=== PATIENT | male | born 1935 | race Caucasian/White ===

== ENCOUNTER → 2016-11-02 14:00 | Outpatient (CLI) | payer MEDICARE, OTHER ==
[2012-08-20 09:27] VITALS: BMI 25.0
[~2016-11-02 14:00] MED LIST: BAYER CHEWABLE81 MG PO; BENICAR5 MG PO; BREO ELLIPTA 11 EACH INH; HYDROCODON-ACE1 EAC7 PO; LEXAPRO20 MG PO; PROSCAR5 MG PO; TOPROL XL25 MG PO
[2016-11-27 10:36] VITALS: BMI 26.4
== END | disposition home or self-care (01) ==
LOC: D.CT 14:00
DX: R06.00 Dyspnea, unspecified (principal)

== ENCOUNTER 2016-11-27 08:56 | Day surgery (SDC) | payer MEDICARE, OTHER ==
[~2016-11-27] VITALS: Ht 185.4 cm; Wt 90.9 kg
[2016-11-27 09:38] LABS: HEMATOCRIT 47.1 % (42.0-54.0); HEMOGLOBIN 16.3 g/dL (13.5-17.5); MCH 33.7 pg (26.0-34.0); MCHC 34.6 g/dL (31.0-37.0); MCV 97.3 fL (80.0-100.0); MEAN PLATELET VOLUME 8.7 fL (7.4-10.4); NEUTROPHILS 70.2 % (40-80); PLATELET COUNT 246 10x3/uL (130-400); RBC 4.84 10x6/uL (4.20-6.10); RDW 13.1 % (11.5-14.5); WBC 6.6 10x3/uL (4.8-10.8)
[2016-11-27 09:44] LABS: APTT 26.7 SECONDS (22.8-39.4); INR 0.93 (0.85-1.17); PROTIME 12.3 SECONDS (11.6-15.0)
[2016-11-27] MEDS ORDERED: PROSCAR5 MG PO (10:07)
[2016-11-27] MEDS ORDERED: TOPROL XL25 MG PO (10:08)
[2016-11-27] MEDS ORDERED: BENICAR5 MG PO (10:08)
[2016-11-27] MEDS ORDERED: BAYER CHEWABLE81 MG PO (10:09)
[2016-11-27] MEDS ORDERED: LEXAPRO20 MG PO (10:09)
[2016-11-27] MEDS ORDERED: HYDROCODON-ACE1 EAC7 PO (10:10)
[2016-11-27 10:36] VITALS: BP 159/79; Ht 185.4 cm; Wt 90.9 kg
[2016-11-27] MEDS ORDERED: BREO ELLIPTA 11 EACH INH (10:40)
--- NOTE | 2016-11-27 12:37 | NUR ---
1225-RECD TO ROOM POST BRONCHOSCOPY. DROWSY, AROUSES EASILY. O2 ON AT 6L, DECREASED TO 2L PER NC--O2 SAT IS 99%. IV PATENT. RESP WITH EASE, CONTINUES TO COUGH AT INTERVALS.
--- NOTE | 2016-11-27 13:40 | NUR ---
PATIENT TOLERATING CLEAR LIQUIDS WITHOUT NAUSEA OR VOMITING, RIGHT AC PIV DC'D WITH TIP INTACT. PATIENT STANDS UP AND WALKS AROUND ROOM WITHOUT DIZZINESS, WALKS WITH CANE, STATES SOME UNSTEADINESS IS TYPICAL FOR HIM DUE TO HX OF STROKE. PATIENT DRESSING IN PERSONAL CLOTHING
--- NOTE | 2016-11-27 14:05 | NUR ---
DC INSTRUCTIONS REVIEWED WITH PATIENT, DISCHARGED HOME VIA WHEELCHAIR TO PRIVATE VEHICLE WITH PAID CAREGIVER
[2016-11-28 09:19] LABS: IMMUNOGLOBULIN E 41 IU/mL (0-100)
[2016-11-28 11:16] LABS: ANA REFLEX - DIRECT Negative (Negative)
[2016-11-29 16:15] LABS: ACID FAST SMEAR Negative (()); AFB SPECIMEN PROCESSING Concentration (())
== END 2016-11-27 14:05 | disposition home or self-care (01) ==
LOC: D.OPS 08:56
PROVIDERS: Internal Medicine Pulmonary Disease
DX: R93.8 Abnormal findings on diagnostic imaging of other specified body structures (principal); J84.112 Idiopathic pulmonary fibrosis; R05 Cough; R06.00 Dyspnea, unspecified; J30.9 Allergic rhinitis, unspecified; K21.9 Gastro-esophageal reflux disease without esophagitis; T17.928A Food in respiratory tract, part unspecified causing other injury, initial encounter; G47.19 Other hypersomnia; J45.991 Cough variant asthma; I10 Essential (primary) hypertension; I49.3 Ventricular premature depolarization; N40.0 Benign prostatic hyperplasia without lower urinary tract symptoms; I63.9 Cerebral infarction, unspecified; R21 Rash and other nonspecific skin eruption

== ENCOUNTER → 2016-12-05 10:20 | Outpatient (CLI) | payer MEDICARE, OTHER ==
[2016-11-27 10:36] VITALS: BMI 26.4
== END | disposition home or self-care (01) ==
LOC: D.RT 10:20 → D.ECHO 12-06 09:00 → D.RT 12-11 08:00
DX: J84.10 Pulmonary fibrosis, unspecified (principal)

== ENCOUNTER → 2017-01-21 19:45 | Outpatient (CLI) | payer MEDICARE, OTHER ==
[2016-11-27 10:36] VITALS: BMI 26.4
== END | disposition home or self-care (01) ==
LOC: D.SLEEP 19:45
DX: G47.33 Obstructive sleep apnea (adult) (pediatric) (principal)

== ENCOUNTER → 2017-01-28 19:30 | Outpatient (CLI) | payer MEDICARE, OTHER ==
[2016-11-27 10:36] VITALS: BMI 26.4
== END | disposition home or self-care (01) ==
LOC: D.SLEEP 19:30
DX: G47.33 Obstructive sleep apnea (adult) (pediatric) (principal)

== ENCOUNTER → 2017-02-08 19:07 | Outpatient (CLI) | payer MEDICARE, OTHER ==
[2016-11-27 10:36] VITALS: BMI 26.4
== END | disposition home or self-care (01) ==
LOC: D.SLEEP 19:07
DX: G47.30 Sleep apnea, unspecified (principal)

== ENCOUNTER 2017-02-21 13:00 | Observation (INO) | payer MEDICARE, OTHER ==
[~2017-02-21] VITALS: Ht 185.4 cm; Wt 96.2 kg
[2017-02-21 13:16] LABS: BASOPHILS 0.4 % (0-2); EOSINOPHILS 2.6 % (0-7); HEMATOCRIT 47.4 % (42.0-54.0); IMMATURE GRANULOCYTES 0.5 % (0-5); LYMPHOCYTES 13.3 % (15-50); MCH 33.3 pg (26.0-34.0); MCHC 33.8 g/dL (31.0-37.0); MCV 98.5 fL (80.0-100.0); MEAN PLATELET VOLUME 9.7 fL (7.4-10.4); MONOCYTES 10.9 % (2-11); NEUTROPHILS 72.3 % (40-80); PLATELET COUNT 275 10x3/uL (130-400); RBC 4.81 10x6/uL (4.20-6.10); RDW 13.1 % (11.5-14.5); WBC 8.4 10x3/uL (4.8-10.8)
[2017-02-21 13:20] LABS: APTT 26.8 SECONDS (22.8-39.4); INR 0.96 (0.85-1.17); PROTIME 12.6 SECONDS (11.6-15.0)
[2017-02-21 13:22] LABS: ALBUMIN 3.3 g/dL (3.4-5.0); ANION GAP 11.3 mmol/L (8-16); BILIRUBIN - TOTAL 0.73 mg/dL (0.2-1.3); CALCIUM 9.1 mg/dL (8.5-10.1); CARBON DIOXIDE 27.6 mmol/L (21.0-32.0); CREATININE - SERUM 1.7 mg/dL (0.6-1.3); POTASSIUM - SERUM 4.9 mmol/L (3.5-5.1); PROTEIN - SERUM 7.1 g/dL (6.4-8.2)
[2017-02-21 13:49] LABS: CKMB 3.8 U/L (0.0-3.6); CREATINE KINASE 184 UL (21-232); TROPONIN-I 0.021 ng/mL (0.000-0.060)
[2017-02-21] MEDS ORDERED: MIRAPEX0.25 MG PO (17:14)
[2017-02-21] MEDS ORDERED: HYDROXYZINE HCL10 MG PO (17:15)
[2017-02-21] MEDS ORDERED: DIPHENHIST25 MG PO (17:18)
[2017-02-21 17:23] VITALS: BP 164/74; Ht 185.4 cm; Wt 96.2 kg
--- NOTE | 2017-02-21 19:36 | NUR ---
NORCO 1 TAB GIVEN FOR C/O HEADACHE, RATES PAIN AT A 5 ON PAIN SCALE.
[2017-02-21] MEDS ORDERED: XOPENEX 0.0.63 MG/3 UPD (19:38)
[2017-02-21 20:00] VITALS: BP 143/54
--- NOTE | 2017-02-21 20:23 | NUR ---
SON AT NURSES DESK, STATED THAT HIS FATHER WAS "SPEAKING GIBBERISH" ENTERED ROOM, VITALS STABLE, PT ALERT ORIENTED TO SELF, KNEW THAT HE WAS IN THE HOSPITAL BUT THOUGHT THAT HE WAS IN A DIFFERENT STATE. PT C/O HEADACHE, ASKING FOR HYDROCODONE, REMINDED PT THAT I GAVE IT ABOUT AN HOUR AGO BUT I CAN BRING HIM IN SOME TYLENOL WITH [facility] NIGHT TIME MEDS AND PT AGREED THAT, THAT WILL BE OK.
--- NOTE | 2017-02-21 20:30 | NUR ---
SPOKE WITH DR ARAIZA, INFORMED OF CONSULT, NO NEW ORDERS AT THIS TIME.
--- NOTE | 2017-02-21 21:13 | NUR ---
HS MEDS GIVEN WITH FRESH ICE WATER. TYLENOL 650 MG GIVEN FOR C/O HEADACHE, STATED THAT THE NORCO GIVEN EARLIER HAS HELPED BUT STILL RATES PAIN AT A 5 ON PAIN SCALE. SON AT BED SIDE, BED LOW, CL IN REACH.
[2017-02-22] VITALS: BP 158/73
--- NOTE | 2017-02-22 00:22 | NUR ---
DAVID 1 TAB GIVEN FOR C/O HEADACHE, PT STATED THAT HIS HEADACHE FROM EARILER WENT AWAY BUT HAS COME BACK, RATES PAIN AT A 6 ON PAIN SCALE.
--- NOTE | 2017-02-22 01:38 | NUR ---
RESTING WITH EYES CLOSED, RESPERATIONS EVEN, NO S/S DISTRESS NOTED.
[2017-02-22 04:00] VITALS: BP 146/75
[2017-02-22 05:42] LABS: BASOPHILS 0.4 % (0-2); EOSINOPHILS 3.5 % (0-7); HEMATOCRIT 46.4 % (42.0-54.0); HEMOGLOBIN 15.3 g/dL (13.5-17.5); IMMATURE GRANULOCYTES 0.3 % (0-5); LYMPHOCYTES 20.4 % (15-50); MCH 32.5 pg (26.0-34.0); MCV 98.5 fL (80.0-100.0); MEAN PLATELET VOLUME 9.6 fL (7.4-10.4); MONOCYTES 10.5 % (2-11); NEUTROPHILS 64.9 % (40-80); PLATELET COUNT 268 10x3/uL (130-400); RBC 4.71 10x6/uL (4.20-6.10); RDW 12.9 % (11.5-14.5); WBC 7.7 10x3/uL (4.8-10.8)
[2017-02-22 06:13] LABS: CALC OSMOLALITY 277 mosm/kg (275-300); CALCIUM 8.5 mg/dL (8.5-10.1); CARBON DIOXIDE 26.2 mmol/L (21.0-32.0); CHLORIDE - SERUM 103 mmol/L (98-107); CKMB 5.6 U/L (0.0-3.6); CREATININE - SERUM 1.6 mg/dL (0.6-1.3); GLUCOSE 97 mg/dL (74-106); SODIUM 137 mmol/L (136-145); TROPONIN-I 0.017 ng/mL (0.000-0.060); UREA NITROGEN 25 mg/dL (7-18); eGFR NON AFRICAN AMERICAN 44 mL/min (90-120)
[2017-02-22 06:16] LABS: CREATINE KINASE 276 UL (21-232)
--- NOTE | 2017-02-22 07:37 | NUR ---
ASSESSMENT COMPLETED. DR ARAIZA AT BEDSIDE. IV TO RIGHT ARM WITH D51/2 AT 50. DENIES ANY NEEDS. FAMILY AT BEDSIDE. PT IS ALERT AND ORIENTED AT PRESENT TIME. TELEMERTY SHOWS SR
[2017-02-22 08:18] VITALS: BP 156/76
--- NOTE | 2017-02-22 09:20 | NUR ---
WATCHING TV IN ROOM WITH NEEDS DENIED CALL LIGHT IN REACH WITH DOOR OPEN FOR VISUAL OBSERVATION OF NEEDS WILL MONITOR
[2017-02-22 11:44] VITALS: BP 144/62
[2017-02-22] MEDS ORDERED: ASPIRIN325 MG PO (12:26)
--- NOTE | 2017-02-22 12:49 | NUR ---
LYING QUIETLY WITH SON AT BEDSIDE. AWAITING DR Delgado FOR DISCHARGE. WILL MONITOR
--- NOTE | 2017-02-22 13:51 | NUR ---
PT DISCHARGED. IV DC D WITH TIP INTACT. INSTRUCTIONS GIVEN TO PT AND SON. TO PRIVATE CAR PER WHEELCHAIR.
== END 2017-02-22 13:55 | disposition home or self-care (01) ==
LOC: D.ER 13:00 → D.M2 15:40 → OBSVTIME 15:48 → D.M2 02-22 13:55
PROVIDERS: Emergency Medicine; ADMIT Family Medicine
DX: G45.9 Transient cerebral ischemic attack, unspecified (principal); M50.00 Cervical disc disorder with myelopathy, unspecified cervical region; E78.5 Hyperlipidemia, unspecified; I10 Essential (primary) hypertension; Z86.73 Personal history of transient ischemic attack (TIA), and cerebral infarction without residual deficits; R51 Headache; K21.9 Gastro-esophageal reflux disease without esophagitis

== ENCOUNTER 2017-03-05 12:02 | Inpatient (IN) | payer MEDICARE, OTHER ==
[~2017-03-05 12:02] MED LIST changes: +ASPIRIN325 MG PO; +DIPHENHIST25 MG PO; +HYDROXYZINE HCL10 MG PO; +MIRAPEX0.25 MG PO; +XOPENEX 0.0.63 MG/3 UPD
[2017-03-05 13:15] LABS: BASOPHILS 0.1 % (0-2); EOSINOPHILS 1.8 % (0-7); HEMATOCRIT 45.5 % (42.0-54.0); HEMOGLOBIN 15.5 g/dL (13.5-17.5); IMMATURE GRANULOCYTES 0.9 % (0-5); LYMPHOCYTES 10.1 % (15-50); MCH 33.1 pg (26.0-34.0); MCHC 34.1 g/dL (31.0-37.0); MCV 97.2 fL (80.0-100.0); MEAN PLATELET VOLUME 9.8 fL (7.4-10.4); MONOCYTES 10.7 % (2-11); NEUTROPHILS 76.4 % (40-80); RBC 4.68 10x6/uL (4.20-6.10); RDW 13.1 % (11.5-14.5); WBC 11.3 10x3/uL (4.8-10.8)
[2017-03-05 13:22] LABS: PLATELET COUNT 214 10x3/uL (130-400)
[2017-03-05 13:30] LABS: INR 0.97 (0.85-1.17); PROTIME 12.8 SECONDS (11.6-15.0)
[2017-03-05 13:36] LABS: ALBUMIN 2.9 g/dL (3.4-5.0); ALKALINE PHOSPHATASE 112 U/L (46-116); ALT (SGPT) 39 U/L (10-68); BILIRUBIN - TOTAL 1.01 mg/dL (0.2-1.3); CALC OSMOLALITY 279 mosm/kg (275-300); CARBON DIOXIDE 22.7 mmol/L (21.0-32.0); CHLORIDE - SERUM 105 mmol/L (98-107); CREATININE - SERUM 1.6 mg/dL (0.6-1.3); GLUCOSE 108 mg/dL (74-106); POTASSIUM - SERUM 4.5 mmol/L (3.5-5.1); PROTEIN - SERUM 7.5 g/dL (6.4-8.2); SODIUM 138 mmol/L (136-145); UREA NITROGEN 20 mg/dL (7-18); eGFR NON AFRICAN AMERICAN 44 mL/min (90-120)
[2017-03-05 13:45] LABS: CREATINE KINASE 120 UL (21-232); PRO BNP 730 pg/mL (0-450)
[2017-03-05 13:48] LABS: TROPONIN-I < 0.017 ng/mL (0.000-0.060)
[2017-03-05 18:55] LABS: APPEARANCE HAZY (CLEAR); BILIRUBIN NEGATIVE (NEGATIVE); COLOR DK YELLOW (YELLOW); GLUCOSE NEGATIVE (NEGATIVE); KETONE NEGATIVE (NEGATIVE); NITRITE NEGATIVE (NEGATIVE); PROTEIN TRACE mg/dL (NEGATIVE); SPECIFIC GRAVITY 1.025 (1.005-1.020); UROBILINOGEN NORMAL (NORMAL)
[2017-03-05 18:56] LABS: BACTERIA MODERATE /hpf (NONE SEEN); RED CELLS - URINE >50 /hpf (0-5); WHITE CELLS - URINE 25-50 /hpf (0-5)
--- NOTE | 2017-03-05 21:30 | NUR ---
RECEIVED PT FROM ER, PT ALERT AND ORIENTED.
[2017-03-06] VITALS: BP 121/60
--- NOTE | 2017-03-06 02:29 | NUR ---
REST QUIETLY IN BED. BED LOW, CALL LIGHT WITHIN REACH.
[2017-03-06 04:00] VITALS: BP 155/69
[2017-03-06 04:27] VITALS: BMI 26.4
[2017-03-06] MEDS ORDERED: VITAMIN B-121000 MCG PO (05:08)
[2017-03-06] MEDS ORDERED: MIRAPEX0.25 MG PO (05:09)
[2017-03-06] MEDS ORDERED: TYLENOL PM1 TAB PO (05:10)
[2017-03-06] MEDS ORDERED: HEADACHE MEDICINE (05:16)
[2017-03-06 06:14] LABS: BASOPHILS 0.3 % (0-2); HEMATOCRIT 40.7 % (42.0-54.0); HEMOGLOBIN 13.8 g/dL (13.5-17.5); IMMATURE GRANULOCYTES 0.5 % (0-5); MCH 33.3 pg (26.0-34.0); MCHC 33.9 g/dL (31.0-37.0); MCV 98.3 fL (80.0-100.0); MEAN PLATELET VOLUME 9.9 fL (7.4-10.4); MONOCYTES 10.4 % (2-11); NEUTROPHILS 73.8 % (40-80); PLATELET COUNT 209 10x3/uL (130-400); RBC 4.14 10x6/uL (4.20-6.10); WBC 10.9 10x3/uL (4.8-10.8)
[2017-03-06 06:33] LABS: ANION GAP 15.3 mmol/L (8-16); CALCIUM 8.5 mg/dL (8.5-10.1); CARBON DIOXIDE 22.4 mmol/L (21.0-32.0); CREATININE - SERUM 1.4 mg/dL (0.6-1.3)
[2017-03-06 06:35] LABS: POTASSIUM - SERUM 3.7 mmol/L (3.5-5.1)
--- NOTE | 2017-03-06 07:35 | NUR ---
SITTING IN BED, AT BEDSIDE, DAUGHTER ON PHONE, REQUEST CPAP BUT WE DON'T HAVE ANY AVAILABLE AT THE HOSPITAL, AWAITING FOR HOME MACHINE TO BE DELIVERED, BED LOWEST POSITION, CALL LIGHT IN REACH, WILL CONTINUE TO MONITOR
[2017-03-06 08:07] VITALS: BP 138/69
[2017-03-06 10:55] VITALS: BMI 26.3
[2017-03-06 12:17] VITALS: BP 140/71
--- NOTE | 2017-03-06 13:22 | NUR ---
RESPIRATIONS EVEN AND NON LABORED. AT BEDSIDE WITH CALL LIGHT IN REACH. DENIES NEEDS AT PRESENT TIME. WILL CONTINUE WITH PLAN OF CARE.
--- NOTE | 2017-03-06 15:19 | NUR ---
Patient Name: PHILIP PATEL Admission Status: ER Accout number: [id number] Admission Date: 03-05-2017 : 1935 Admission Diagnosis:PNEUMONIA, UNSPECIFIED ORGANISM Attending: CHETAN Current LOS: 1 Anticipated DC Date: 03-08-2017 Planned Disposition: Home Primary Insurance: MEDICARE A & B Discharge Planning Comments: CM MET WITH PATIENT AND CAREGIVER (KATHRINE) REGARDING D/C NEEDS AND PLANS. PATIENT STATED HE HAS NO STEPS OR STAIRS AT HIS HOME AND ONE OF HIS CAREGIVERS WILL DRIVE HIM HOME AT DISCHARGE. PATIENT STATED HE HAS A PRIVATE CAREGIVER (KATHRINE) AND OTHERS THROUGH [facility]. PATIENT HAS A WALKER, BUILT IN SEAT IN SHOWER, AND NEBULIZER AT HOME. PATIENT HAS A C-PAP ON ORDER THROUGH DR. COVARRUBIAS OFFICE AND CM CHECKED WHEN C-PAP WAS ORDERED AND IT WAS February. PATIENTS PCP IS DR. HIGGINS, AND PHARMACY IS [facility] IN THE [facility]. CM WILL CONTINUE TO FOLLOW PATIENT WITH D/C NEEDS AND PLANS. PATIENT REFUSED HOME HEALTH. CM WILL CONTINUT TO FOLLOW PATIENT WITH D/C NEEDS AND PLANS. PCP DR. ENGLISH WATTERS AT [facility] [phone] KATHRINE (PRIVATE AQUATIC LIFE LABORER) [phone] [facility] Factory Process Workers: Regijoyce Aranda Is the patient Alert and Oriented? Yes 0 * How many steps to enter\exit or inside your home? 0 0 * PCP DR. HIGGINS 0 * Pharmacy [facility] 0 * Preadmission Environment Home with Family 0 * ADLs Partial Dependent 0 * Partial ADLs (Assistance needed) Bathing Dressing Medication Management 0 * Equipment Nebulizer Walker 0 * Other Equipment BUILT IN SHOWER CHAIR 0 * List name and contact numbers for known caregivers / representatives who currently or will assist patient after discharge: KATHRINE (PRIVATE AQUATIC LIFE LABORER) [phone] [facility] (OTHER CARE GIVERS) 0 * Community resources currently utilized Private Duty Care 0 * Please name any agencies selected above. [facility] 0 * Additional services required to return to the preadmission environment? Yes 0 * Can the patient safely return to the preadmission environment? Yes 0 * Has this patient been hospitalized within the prior 30 days at any hospital? No 0 Grand Total: 0
[2017-03-06 16:14] VITALS: BP 125/59
--- NOTE | 2017-03-06 19:45 | NUR ---
PATIENT RESTING IN BED WITH CAREGIVER AT BEDSIDE. PATIENT IS CONCERNED THAT WE DO NOT HAVE ALL OF HIS CURRENT MEDICATIONS LISTED. I WENT THROUGH ALL OF THE PATIENT'S MEDICATIONS THAT HE IS CURRENTLY RECEIVING. PATIENT STATED THAT HE WILL HAVE HIS LIST OF MEDICATIONS BROUGHT IN TOMORROW TO CONFIRM THAT HE IS RECEIVING ALL OF THEM. PATIENT'S BED IS IN THE LOWEST POSITION AND HIS CALL LIGHT IS WITHIN REACH. ENCOURAGED THE PATIENT TO CALL IF HE HAS FURTHER NEEDS.
[2017-03-06 20:00] VITALS: BP 147/75
[2017-03-07] VITALS: BP 140/70
[2017-03-07 04:00] VITALS: BP 133/66
[2017-03-07 07:00] LABS: BASOPHILS 0.5 % (0-2); EOSINOPHILS 5.7 % (0-7); HEMATOCRIT 40.9 % (42.0-54.0); HEMOGLOBIN 13.8 g/dL (13.5-17.5); IMMATURE GRANULOCYTES 0.4 % (0-5); LYMPHOCYTES 14.3 % (15-50); MCH 32.9 pg (26.0-34.0); MCHC 33.7 g/dL (31.0-37.0); MCV 97.4 fL (80.0-100.0); MONOCYTES 11.2 % (2-11); NEUTROPHILS 67.9 % (40-80); PLATELET COUNT 223 10x3/uL (130-400); RDW 12.9 % (11.5-14.5); WBC 9.1 10x3/uL (4.8-10.8)
[2017-03-07 07:03] LABS: CALCIUM 8.5 mg/dL (8.5-10.1); CARBON DIOXIDE 22.7 mmol/L (21.0-32.0); CREATININE - SERUM 1.4 mg/dL (0.6-1.3); POTASSIUM - SERUM 3.7 mmol/L (3.5-5.1)
--- NOTE | 2017-03-07 08:02 | NUR ---
AWAKE AND ALERT. ORIENTED X3. NO C//O THIS AM. LUNGS ARE DIMINISHED THROUGHOUT LUNG TOLBERT. PRODUCTIVE COUGH NOTED. SKIN IS INTACT WITHOUT REDNESS. IV TO RIGHT HAND IS PATENT WITHOUT REDNESS AT ISNERTION SITE. SCD'S IN PLACE. BED ALARM IS ON. DENIES NEEDS.
[2017-03-07 08:18] VITALS: BP 134/67
--- NOTE | 2017-03-07 10:00 | NUR ---
WORKING WITH PT AT THIS TIME.
--- NOTE | 2017-03-07 11:51 | NUR ---
UP TO BR WITH ONE PERSON MIN ASSIST. VOIDED WITHOUT DIFFICULTY AND HAD SMALL BM. QING CARE PER SELF. REPOSITIONED IN BED FOR COMFORT.
[2017-03-07 12:49] VITALS: BP 156/69
--- NOTE | 2017-03-07 15:57 | NUR ---
IV SITED TO LEFT HAND AFTER SEVERAL ATTEMPS WITH 22G.
[2017-03-07 16:10] VITALS: BP 155/68
--- NOTE | 2017-03-07 18:48 | NUR ---
ATE MOST OF SUPPER. FAMILY AT BEDSIDE. DENIES NEEDS. VERY ANXIOUS AT THIS TIME.
[2017-03-07 20:00] VITALS: BP 150/73
--- NOTE | 2017-03-07 20:00 | NUR ---
PATIENT SITTING UP IN THE CHAIR WITH FAMILY AT BEDSIDE. CHANGED THE PATIENT'S LINENS AND ASSISTED HIM BACK TO BED. BED IN LOWEST POSITION, CALL LIGHT WITHIN REACH, AND BED ALARM ON. ENCOURAGED THE PATIENT TO CALL IF HE HAS NEEDS.
[2017-03-08 04:00] VITALS: BP 144/77
[2017-03-08 06:20] LABS: BASOPHILS 0.3 % (0-2); EOSINOPHILS 3.2 % (0-7); HEMATOCRIT 40.9 % (42.0-54.0); HEMOGLOBIN 13.9 g/dL (13.5-17.5); IMMATURE GRANULOCYTES 0.5 % (0-5); LYMPHOCYTES 10.1 % (15-50); MCV 97.1 fL (80.0-100.0); MEAN PLATELET VOLUME 9.8 fL (7.4-10.4); MONOCYTES 9.6 % (2-11); NEUTROPHILS 76.3 % (40-80); PLATELET COUNT 243 10x3/uL (130-400); RBC 4.21 10x6/uL (4.20-6.10); RDW 12.8 % (11.5-14.5); WBC 9.9 10x3/uL (4.8-10.8)
[2017-03-08 06:40] LABS: ANION GAP 12.9 mmol/L (8-16); CALCIUM 8.7 mg/dL (8.5-10.1); CARBON DIOXIDE 25.7 mmol/L (21.0-32.0); CREATININE - SERUM 1.5 mg/dL (0.6-1.3); POTASSIUM - SERUM 3.6 mmol/L (3.5-5.1)
--- NOTE | 2017-03-08 08:03 | NUR ---
AWAKE AND ALERT. ORIENTED TO SELF ONLY. REORIENTED PER STAFF. INCONTINENT OF URINE. SKIN CARE PER STAFF. LINENS CHANGED. LUNGS ARE DIMINISHED THROUGHOUT BUT SLIGHTLY IMPROVED FROM YESTERDAY. OCCASSIONALLY PRODUCTIVE COUGH NOTED. SKIN IS INTACT WITHOUT REDNESS. DENIES NEEDS.
[2017-03-08 08:55] VITALS: BP 144/86
--- NOTE | 2017-03-08 10:00 | NUR ---
ATE ALMOST ALL OF BREAKFAST. CAREGIVER AT BEDSIDE. DENIES NEEDS.
--- NOTE | 2017-03-08 12:15 | NUR ---
ATE ALMOST ALL OF LUNCH PER SELF. DENIES NEEDS.
--- NOTE | 2017-03-08 12:32 | NUR ---
Nutrition Follow Up: Chart reviewed. Pt is eating 82% meal avg on an AHA diet. +BM 03/07/17. Labs reviewed. Meds noted including D5 1/2 NS KCl @ 50 ml/hr. Rec continue current diet. RD following.
[2017-03-08 13:07] VITALS: BP 132/69
--- NOTE | 2017-03-08 13:30 | NUR ---
UP TO BR WITH ONE PERSON ASSIST. VOIDED WITHOUT DIFFICULTY. ASSISTED TO SHOWER AFTERWARDS. LINENS CHANGED.
[2017-03-08 16:18] VITALS: BP 154/56
--- NOTE | 2017-03-08 17:58 | NUR ---
SITTING UP IN BED EATING SUPPER. NO CHANGES NOTED. DENIES NEEDS. FAMILY AT BEDSIDE.
--- NOTE | 2017-03-08 18:44 | NUR ---
UP TO BR WITH 2 PERSON ASSIST. INCONTINENT OF LARGE AMOUNT OF LOOSE DARK STOOL. SKIN CARE PER STAFF. CLOTHING CHANGED.
[2017-03-08 20:00] VITALS: BP 146/71
[2017-03-09] VITALS: BP 145/72
[2017-03-09 04:00] VITALS: BP 150/75
[2017-03-09 05:58] LABS: BASOPHILS 0.5 % (0-2); EOSINOPHILS 5.4 % (0-7); HEMATOCRIT 41.1 % (42.0-54.0); HEMOGLOBIN 13.7 g/dL (13.5-17.5); IMMATURE GRANULOCYTES 0.5 % (0-5); MCH 32.3 pg (26.0-34.0); MCHC 33.3 g/dL (31.0-37.0); MCV 96.9 fL (80.0-100.0); MEAN PLATELET VOLUME 9.5 fL (7.4-10.4); MONOCYTES 10.4 % (2-11); NEUTROPHILS 64.2 % (40-80); PLATELET COUNT 257 10x3/uL (130-400); RBC 4.24 10x6/uL (4.20-6.10); RDW 12.9 % (11.5-14.5)
[2017-03-09 06:00] LABS: WBC 6.4 10x3/uL (4.8-10.8)
[2017-03-09 06:17] LABS: ANION GAP 10.6 mmol/L (8-16); CALCIUM 8.5 mg/dL (8.5-10.1); CARBON DIOXIDE 29.1 mmol/L (21.0-32.0); CREATININE - SERUM 1.5 mg/dL (0.6-1.3); POTASSIUM - SERUM 3.7 mmol/L (3.5-5.1)
--- NOTE | 2017-03-09 08:45 | NUR ---
PT COMPLAINING OF HEADACHE AND NAUSEA AT THIS TIME. PRN NORCO ADMINISTERED FOR HEADACHE AND ZOFRAN ADMINISTERED FOR NAUSEA. IV TO LEFT HAND PATENT. ASSESSMENT PERFORMED PER FLOWSHEET. BED ALARM ON AND CALL LIGHT IN REACH. DENIES FURTHER NEEDS AT THIS TIME. WILL CONTINUE WITH PLAN OF CARE.
[2017-03-09 09:13] VITALS: BP 146/67
--- NOTE | 2017-03-09 09:49 | NUR ---
SCHEDULED MEDICATIONS ADMINISTERED AT THIS TIME. PROVIDED WITH FRESH ICE WATER. PT DENIES NEEDS AT THIS TIME. CALL LIGHT IN REACH, WILL CONTINUE WITH PLAN OF CARE.
--- NOTE | 2017-03-09 11:00 | NUR ---
AT BEDSIDE. CALL LIGHT IN REACH AND NO NEEDS VOICED AT THIS TIME. WILL CONTINUE WITH PLAN OF CARE.
--- NOTE | 2017-03-09 12:11 | NUR ---
REHAB PRESCREENING Rehab referral received and chart reviewed. Patient has not gaited with PT today and was documented as 2 steps yesterday due to fatique from shower. Rehab will continue to follow for gait and possible neurology consult question in plan per Dr. White. Possible admission to rehab tomorrow if patient meets criteria and all consults have been completed. Thank you for this referral! Bette Kirkland, THEATRE MANAGER Rehab Machinist Mechanic
[2017-03-09 13:11] VITALS: BP 134/66
[2017-03-09 18:05] VITALS: BP 126/72
--- NOTE | 2017-03-09 18:55 | NUR ---
Primary nurse, Radha, advised CM that DR White would like an update regarding pt's CPAP. It apparently has been ordered but has not been delivered to the patient. CM reviewed weekday family caseworker's note. Will need to ascertain who is the DME provider, which is not noted at this time. parts sales counterperson is the only person available on the weekend. CM to f/u on Saturday.
[2017-03-09 20:00] VITALS: BP 109/76
[2017-03-10] VITALS: BP 114/77
[2017-03-10 04:00] VITALS: BP 110/78
[2017-03-10 05:30] LABS: BASOPHILS 0.6 % (0-2); EOSINOPHILS 7.2 % (0-7); HEMATOCRIT 41.3 % (42.0-54.0); HEMOGLOBIN 13.8 g/dL (13.5-17.5); IMMATURE GRANULOCYTES 0.3 % (0-5); LYMPHOCYTES 19.9 % (15-50); MCH 32.5 pg (26.0-34.0); MCHC 33.4 g/dL (31.0-37.0); MCV 97.4 fL (80.0-100.0); MEAN PLATELET VOLUME 9.3 fL (7.4-10.4); MONOCYTES 10.1 % (2-11); NEUTROPHILS 61.9 % (40-80); PLATELET COUNT 267 10x3/uL (130-400); RBC 4.24 10x6/uL (4.20-6.10); RDW 12.8 % (11.5-14.5); WBC 6.5 10x3/uL (4.8-10.8)
[2017-03-10 05:51] LABS: CALCIUM 8.6 mg/dL (8.5-10.1); CARBON DIOXIDE 28.8 mmol/L (21.0-32.0); CREATININE - SERUM 1.6 mg/dL (0.6-1.3); POTASSIUM - SERUM 3.8 mmol/L (3.5-5.1)
--- NOTE | 2017-03-10 07:36 | NUR ---
AM ROUNDS-PT IN BED, ASKED FOR BEDPAN, PROVIDED PT WITH BEDPAN AT THIS TIME. PT WILL NOTIFY WHEN READY TO GET OFF BEDPAN. BED LOW AND WHEELS LOCKED. BEDRAILS X2, CALL LIGHT IN REACH, LT HAND IV INFUSING [id number] AT 50CC/HR. O2 AT 3.5L. NAD NOTED, WILL CONTINUE TO MONITOR.
--- NOTE | 2017-03-10 08:36 | NUR ---
AM MEDS GIVEN PT IN BED EATING BREAKFAST. DENIES ANY NEEDS AT THIS TIME. CALL LIGHT IN REACH, NAD NOTED, WILL CONTINUE TO MONITOR.
[2017-03-10 09:12] VITALS: BP 153/96
--- NOTE | 2017-03-10 10:18 | NUR ---
REHAB PRESCREENING Rehab continues to follow as Mr. Lange is a good rehab candidate. We are happy to accept this patient when his physician feels he is appropriate to discharge. Thank you for this referral! Bette Kirkland, MINE EXPLORATION ENGINEER Rehab Machinist Mate
--- NOTE | 2017-03-10 11:43 | NUR ---
LATE ENTRY 1015 PEDRO RECEIVED TELEPHONE CALL THIS AM FROM [facility] SCREENER. PATIENT CAN COME TO REHAB TODAY. PEDRO SPOKE WITH PRIMARY NURSE, SHE CALLED DR VILLANUEVA. HE WILL BE IN TO WRITE THE ORDERS FOR TRANSFER TO ACUTE REHAB TODAY.
--- NOTE | 2017-03-10 12:38 | NUR ---
YAKOV ORTIZ INFORMED THIS RN. THAT PT REFUSED FOR HIS LINEN TO BE CHANGED AT THIS TIME. PT STATED " I AM GOING TO REHAB TODAY, SO NO NEED TO CHANGE THE SHEETS".
--- NOTE | 2017-03-10 19:35 | NUR ---
PATIENT RESTING IN BED WITH GUEST AT BEDSIDE. REPOSITIONED THE PATIENT IN BED. BED IN LOWEST POSITION, CALL LIGHT WITHIN REACH, AND BED ALARM ON ENCOURAGED THE PATIENT TO CALL IF HE HAS FURTHER NEEDS.
[2017-03-10 20:00] VITALS: BP 142/68
[2017-03-11 04:00] VITALS: BP 158/72
--- NOTE | 2017-03-11 07:50 | NUR ---
REPORT RECIEVED ASSUMED CARE. PATIENT IN BED RESTING QUIELTY, CALL LIGHT WITHIN REACH.
[2017-03-11 08:25] VITALS: BP 143/67
--- NOTE | 2017-03-11 08:30 | NUR ---
PATIENT IN BED WITH IV INTACT. NO COMPLAINTS AT THIS TIME. CALL LIGHT WITHIN REACH.
--- NOTE | 2017-03-11 12:39 | NUR ---
PATIENT ASSISTED TO BR. X 2 ASSIST. CALL LIGHT WITHIN REACH.
--- NOTE | 2017-03-11 12:40 | NUR ---
ASSISTED PATIENT BACK TO BED WITH NO PROBLEMS AT THIS TIME. IV INTACT. O2 ON, CALL LIGHT WITHIN REACH.
[2017-03-11 16:15] VITALS: BP 128/64
[2017-03-11 19:00] VITALS: BP 123/64
--- NOTE | 2017-03-11 19:35 | NUR ---
ASSISTED PT BACK TO BED FROM THE RESTROOM. PATIENT DENIES OTHER NEEDS AT THIS TIME. BED IN LOWEST POSITION AND CALL LIGHT WITHIN REACH. ENCOURAGED THE PT TO CALL IF HE HAS FURTHER NEEDS.
[2017-03-12 04:00] VITALS: BP 144/71
[2017-03-12 06:38] LABS: BASOPHILS 0.4 % (0-2); EOSINOPHILS 5.3 % (0-7); HEMATOCRIT 41.4 % (42.0-54.0); HEMOGLOBIN 13.7 g/dL (13.5-17.5); IMMATURE GRANULOCYTES 0.4 % (0-5); LYMPHOCYTES 10.5 % (15-50); MCH 32.5 pg (26.0-34.0); MCHC 33.1 g/dL (31.0-37.0); MCV 98.1 fL (80.0-100.0); MEAN PLATELET VOLUME 9.4 fL (7.4-10.4); MONOCYTES 7.9 % (2-11); NEUTROPHILS 75.5 % (40-80); PLATELET COUNT 315 10x3/uL (130-400); RBC 4.22 10x6/uL (4.20-6.10); RDW 12.7 % (11.5-14.5); WBC 10.2 10x3/uL (4.8-10.8)
[2017-03-12 06:49] LABS: ANION GAP 10.5 mmol/L (8-16); CALCIUM 8.6 mg/dL (8.5-10.1); CARBON DIOXIDE 29.2 mmol/L (21.0-32.0); CREATININE - SERUM 1.7 mg/dL (0.6-1.3); POTASSIUM - SERUM 3.7 mmol/L (3.5-5.1)
--- NOTE | 2017-03-12 07:00 | NUR ---
REPORT RECIEVED ASSUMED CARE. PATIENT IN BED WITH NO COMPLAINTS AT THIS TIME. IV INTACT. CALL LIGHT WITHIN REACH.
[2017-03-12 08:30] VITALS: BP 128/62
--- NOTE | 2017-03-12 08:45 | NUR ---
ASSESSMENT COMPLETE, VS STABLE. IV INTACT. NO COMPLAINTS AT THIS TIME. STATED HAVING DIARRHEA AND SPOKE WITH DR. HIGGINS ABOUT IT. GI CONSULT DONE. PATIENT STATED HE DIDNT TELL DR. HIGGINS AOBUT THE RASH ON HIS BACK. PATIENT BACK HAS RED RASH AT THIS TIME. CLEAN WITH SOAP AND WATER AND POWDER PLACED. CALL LIGHT WITHIN REACH.
--- NOTE | 2017-03-12 10:42 | NUR ---
NUTRITION MONITORING & EVAL CHART REVIEWED, PT VISIT. TOLERATING AHA DIET. ENSURE. 75% INTAKE BREAKFAST. RD FOLLOWING
--- NOTE | 2017-03-12 18:45 | NUR ---
PATIENT IN BED WITH IV INTACT. NO COMPLAINTS AT THIS TIME. CALL LIGHT WITHIN REACH.
[2017-03-12 19:00] VITALS: BP 137/71
[2017-03-12 19:07] VITALS: BP 126/64
--- NOTE | 2017-03-12 19:43 | NUR ---
PATIENT SITTER IN ROOM UPSET PATIENT IS STILL HAVING DIARHEA AND CANT HAVE AN IMODIUM. EXPLAINED DR. HIGGINS IS AWARE OF DIARRHEA AND HAS ORDERED A GI CONSULT. EXPLAINED DR. MOHR SHOULD BE IN TO SEE THE PATIENT THIS EVENING. SITTER NOT HAPPY WITH ANSWER, WANTS ME TO CALL SOMEONE THAT CAN GIVE A BETTER ANSWER THAN THAT. CALLED NALYA MATHURELIGIBILITY SERVICES REPRESENTATIVE.
[2017-03-13] VITALS: BP 136/62
--- NOTE | 2017-03-13 02:00 | NUR ---
PT IN BED WITH NO DISTRESS. RESPIRATIONS EVEN AND UNLABORED. SIDE RAILS X 2. BED IS LOW. CALL LIGHT IN REACH.
[2017-03-13 04:00] VITALS: BP 132/65
[2017-03-13 06:01] LABS: BASOPHILS 0.4 % (0-2); EOSINOPHILS 5.8 % (0-7); HEMATOCRIT 41.2 % (42.0-54.0); HEMOGLOBIN 13.8 g/dL (13.5-17.5); IMMATURE GRANULOCYTES 0.1 % (0-5); LYMPHOCYTES 18.1 % (15-50); MCH 32.9 pg (26.0-34.0); MCHC 33.5 g/dL (31.0-37.0); MCV 98.1 fL (80.0-100.0); MEAN PLATELET VOLUME 9.4 fL (7.4-10.4); MONOCYTES 9.9 % (2-11); NEUTROPHILS 65.7 % (40-80); PLATELET COUNT 314 10x3/uL (130-400); RDW 12.9 % (11.5-14.5)
[2017-03-13 06:07] LABS: WBC 6.9 10x3/uL (4.8-10.8)
[2017-03-13 06:19] LABS: ALBUMIN 2.8 g/dL (3.4-5.0); ANION GAP 10.4 mmol/L (8-16); BILIRUBIN - TOTAL 0.45 mg/dL (0.2-1.3); CALCIUM 8.6 mg/dL (8.5-10.1); CARBON DIOXIDE 30.9 mmol/L (21.0-32.0); CREATININE - SERUM 1.6 mg/dL (0.6-1.3); PRE-ALBUMIN 21.8 mg/dL (18.0-35.7)
[2017-03-13 06:26] LABS: POTASSIUM - SERUM 4.3 mmol/L (3.5-5.1)
--- NOTE | 2017-03-13 06:46 | NUR ---
RESTING QUIETLY. NO DISTRESS NOTED. CL IN REACH
--- NOTE | 2017-03-13 07:00 | NUR ---
PT REC'D FROM MATHEW JOHNSON. CALL LIGHT ANSWERED AT THIS TIME. AAOX4. PARTIAL LINEN CHANGE PROVIDED PER PT REQUEST. REGULAR HEART RATE AND RHYTHM. BILAT WHEEZES NOTED TO LL. BOWEL SOUNDS ACTIVE X4 QUADRANTS. NO COMPLAINTS OF NAUSEA. PIV TO L HAND FREE OF REDNESS AND SWELLING. CLUTTER CLEANED FROM ROOM. BED LOW, CALL LIGHT IN REACH, DENIES NEEDS. CPOC.
[2017-03-13 08:18] VITALS: BP 126/57
--- NOTE | 2017-03-13 09:15 | NUR ---
MORNING MEDS PASSED AT THIS TIME. TOLERATED WELL BY TAKING A FEW PILLS AT A TIME. FRESH WATER PROVIDED. ASSISTED PT TO SIT UP TO VIEW RASH ON BACK. GENERALIZED RED PUSTULES TO SHOULDER BLADES AND DOWN MID BACK NOTED. NO COMPLAINTS OF ITCHING AT THIS TIME. WILL REASSESS. BED LOW, CALL LIGHT IN REACH, DENIES NEEDS. CPOC.
--- NOTE | 2017-03-13 10:55 | NUR ---
PRN PHENERGAN ADMINISTERED PER PT COMPLAINTS OF NAUSEA. FAMILY AT BEDSIDE. UPDATE PROVIDED. BED LOW, CALL LIGHT IN REACH, DENIES NEEDS. CPOC.
--- NOTE | 2017-03-13 12:24 | NUR ---
RESTING QUIETLY IN BED WITH EYES CLOSED. CPAP IN PLACE. CAREGIVER AT BEDSIDE. LUNGS ARE DIMINISHED THROUGHOUT LUNG TOLBERT. NO COUGH NOTED. NO NEEDS ASSESSED.
[2017-03-13 12:39] VITALS: BP 125/68
[2017-03-13 15:59] VITALS: BP 136/63
--- NOTE | 2017-03-13 19:30 | NUR ---
ASSISTED THE PT TO THE BSC AND BACK TO BED. PATIENT IS RESTING IN BED AND DENIES OTHER NEEDS AT THIS TIME. BED IN LOWEST POSITION AND CALL LIGHT WITHIN REACH. ENCOUARGED THE PT TO CALL IF HE HAS FURTHER NEEDS.
[2017-03-13 20:00] VITALS: BP 138/67
[2017-03-14] VITALS (14 sets, daily range): BP systolic 107–151; BP diastolic 57–93
--- NOTE | 2017-03-14 03:13 | NUR ---
ASSISTED PT TO THE BSC AND BACK TO BED. BED IN LOWEST POSITION, CALL LIGHT WITHIN REACH, AND BED ALARM ON. ENCOUARAGED THE PATIENT TO CALL IF HE HAS FURTHER NEEDS.
--- NOTE | 2017-03-14 07:05 | NUR ---
PT REC'D FROM [facility]. DR. HIGGINS AT BEDSIDE DISCUSSING POC. AAOX4. NO COMPLAINTS OF PAIN. LUNG SOUNDS CLEAR AND EQUAL BILAT. REGULAR HEART RATE AND RHYTHM. TELEMETRY STICKERS REPLACED. BOWEL SOUNDS ACTIVE X4 QUADRANTS. RASH TO BACK GENERALIZED PUSTULES, BUT PT DENIES ITCHING. BED LOW, CALL LIGHT IN REACH, DENIES NEEDS. CPOC.
--- NOTE | 2017-03-14 09:50 | NUR ---
PT REC'D BACK FROM GI LAB. AAOX4. VSS. NO COMPLAINTS OF PAIN. BED LOW, CALL LIGHT IN REACH, DENIES NEEDS. CPOC.
--- NOTE | 2017-03-14 10:05 | NUR ---
LYING SUPINE AT THIS TIME WITH RESPIRATIONS EVEN AND NON LABORED. OXYGEN ON 3L VIA NC. BED ALARM ON AND CALL LIGHT IN REACH. DOOR REMAINS OPEN. WILL CONTINUE WITH PLAN OF CARE.
--- NOTE | 2017-03-14 11:10 | NUR ---
MORNING MEDS PASSED AT THIS TIME. TOLERATED WELL. FRESH WATER PROVIDED. BED LOW, CALL LIGHT IN REACH, DENIES NEEDS. CPOC.
--- NOTE | 2017-03-14 13:38 | NUR ---
DR. HIGGINS CALLED REGARDING POSSIBLE DISCHARGE TO REHAB TODAY. VOICEMAIL LEFT.
--- NOTE | 2017-03-14 19:35 | NUR ---
PATIENT RESTING IN BED AND DENIES NEEDS AT THIS TIME. BED IN LOWEST POSITION, CALL LIGHT WITHIN REACH, AND BED ALARM ON. ENCOURAGED THE PATIENT TO CALL IF HE HAS NEEDS.
[2017-03-15 04:06] VITALS: BP 144/74
--- NOTE | 2017-03-15 07:00 | NUR ---
PT REC'D FROM [facility]. RESTING IN BED WITH DR. HIGGINS AT BEDSIDE DISCUSSING DISCHARGE TO INPATIENT REHAB. AAOX4. NO COMPLAINTS OF PAIN. REGULAR HEART RATE AND RHYTHM. TELEMETRY LEADS IN PLACE. LUNG SOUNDS CLEAR AND EQUAL AND SLIGHTLY DIMINISHED BILAT TO LOWER LOBES. BOWEL SOUNDS ACTIVE X4 QUADS, ABD ROUND AND SOFT, NO PAIN UPON PALPATION. NO COMPLAINTS OF N/V OR DIAHRREA. +2 PEDAL PULSES BILAT. BED LOW, CALL LIGHT IN REACH, DENIES NEEDS. CPOC.
[2017-03-15] MEDS ORDERED: NS IV (07:49)
[2017-03-15] MEDS ORDERED: UNASYN IV (07:49)
[2017-03-15] MEDS ORDERED: FLAGYL 500500 MG/100 IV (07:50)
[2017-03-15] MEDS ORDERED: NYSTATIN ORAL SU5 ML PO (07:50)
[2017-03-15] MEDS ORDERED: BENADRYL25 MG PO (07:50)
[2017-03-15] MEDS ORDERED: PULMICORT0.5 MG/21 UPD (07:51)
[2017-03-15] MEDS ORDERED: BENZONATATE200 MG PO (07:51)
[2017-03-15] MEDS ORDERED: FLUTICASONE PRO16 GM NASAL (07:52)
[2017-03-15] MEDS ORDERED: PEPCID INJ20 MG/2 ML IV (07:52)
[2017-03-15] MEDS ORDERED: MUCINEX DM ER1 EAC1 PO (07:52)
[2017-03-15] MEDS ORDERED: CARAFATE1 G PO (07:53)
[2017-03-15] MEDS ORDERED: FLORAJEN3 CAPS460 MG PO (07:53)
[2017-03-15] MEDS ORDERED: LOPERAMIDE HCL2 MG PO (07:53)
[2017-03-15] MEDS ORDERED: PROSCAR5 MG PO (07:53)
[2017-03-15 08:25] VITALS: BP 118/67
--- NOTE | 2017-03-15 10:11 | NUR ---
CM REASSEMENT NOTE: PATIENT IS DISCHARGING TODAY TO IP REHAB DOWNSTAIRS. IMM SERVED
--- NOTE | 2017-03-15 12:20 | NUR ---
REPORT CALLED TO [facility], IN REHAB. LET PT AND KNOW THAT HE WOULD BE TRANSFERED AND WHAT ROOM IT WOULD BE. NO QUESTIONS OR CONCERNS VOICED AT THIS TIME. BED LOW, CALL LIGHT IN REACH, DENIES NEEDS. CPOC.
[2017-03-15 12:21] VITALS: BP 114/57
--- NOTE | 2017-03-15 12:58 | NUR ---
ASSISTED TO BATHROOM WITH ONLY STAND BY ASSISTANCE TO MANAGE O2 TUBING.
--- NOTE | 2017-03-15 14:16 | NUR ---
DISCHARGE INSTRUCTIONS DISCUSSED AT THIS TIME. NO QUESTIONS OR CONCERNS VOICED. BELONGS PACKED. BLACK WALLET PLACED IN BLACK BAG THAT HAS WOODEN SIGN IN IT. ESCORTED OUT VIA WC.
--- NOTE | 2017-03-15 17:20 | OP ---
PATIENT NAME: PHILIP LANGE MEDICAL RECORD: [id number] :36 LOCATION:[id number] ADMISSION DATE:03/05/17 SURGEON: THEODORE MOHR MD DATE OF OPERATION: 03/14/2017 PROCEDURE: Colonoscopy. INDICATIONS: Mr. Lange is a pleasant 82-year-old gentleman, who has had symptoms of nausea and diarrhea. He has had explosive bowel movements associated with diffuse abdominal pain. He has been on Unasyn and Flagyl. His diarrhea is abating. Stool studies have been negative to date. He presents for inpatient colonoscopy. PREMEDICATIONS: Total IV anesthesia (propofol 100 mg). INSTRUMENT: Olympus video colonoscope. PROCEDURE AND FINDINGS: After receiving informed consent, Mr. Lange was placed in left lateral decubitus position, sedated as per anesthesia. After achieving adequate level of sedation, digital rectal exam was performed that showed few external hemorrhoidal tags, no fissures or fistulas, normal sphincter tone, no palpable rectal masses. Colonoscope was introduced per rectally and advanced to the mid to proximal transverse colon (unprepped colonoscopy). As the colonoscope was withdrawn, careful inspection was made of the walter of the colon. Overall, mucosa had normal vascular and fold pattern. There was no erythema or ulcers. There are few uncomplicated diverticula seen in the sigmoid colon. Random biopsies were taken from the transverse, descending and sigmoid colon. Retroflexion in the rectum showed mild internal hemorrhoids. Mr. Lange tolerated the procedure well, no immediate complications. ASSESSMENT: 1. Mild sigmoid diverticulosis coli. 2. Diarrhea, status post random colon biopsies. RECOMMENDATIONS: 1. Follow up histopathology. 2. Resumed [employer] diet. TRANSINT:[id number] Voice Confirmation ID: [id number] DOCUMENT ID: [id number] THEODORE MOHR MD at 1720 CC: MOSES HIGGINS MD [id number] DICTATION DATE: 03/14/17 09 RETAIL BRANCH MANAGER: 03/14/17 1229 DIS IN 03/15/17 [facility] [address] [place] [address]
== END 2017-03-15 15:01 | DRG 177 ==
LOC: D.ER 12:02 → D.MS 20:30
PROVIDERS: Family Medicine; Internal Medicine Gastroenterology; Nurse Practitioner Family; ADMIT Family Medicine
PROC: 0DBL8ZX Excision of Transverse Colon, Via Natural or Artificial Opening Endoscopic, Diagnostic (ICD-10-PCS; 2017-03-14)
PROC: 0DBN8ZX Excision of Sigmoid Colon, Via Natural or Artificial Opening Endoscopic, Diagnostic (ICD-10-PCS; 2017-03-14)
PROC: 0DBM8ZX Excision of Descending Colon, Via Natural or Artificial Opening Endoscopic, Diagnostic (ICD-10-PCS; principal; 2017-03-14 08:30)
DX: J69.0 Pneumonitis due to inhalation of food and vomit (principal); I50.31 Acute diastolic (congestive) heart failure; N39.0 Urinary tract infection, site not specified; N17.9 Acute kidney failure, unspecified; I13.0 Hypertensive heart and chronic kidney disease with heart failure and stage 1 through stage 4 chronic kidney disease, or unspecified chronic kidney disease; J98.11 Atelectasis; I47.1 Supraventricular tachycardia; B37.0 Candidal stomatitis; F41.8 Other specified anxiety disorders; I95.9 Hypotension, unspecified; J84.112 Idiopathic pulmonary fibrosis; N18.3 Chronic kidney disease, stage 3 (moderate); I27.2 Other secondary pulmonary hypertension; K57.30 Diverticulosis of large intestine without perforation or abscess without bleeding; B95.61 Methicillin susceptible Staphylococcus aureus infection as the cause of diseases classified elsewhere; B95.2 Enterococcus as the cause of diseases classified elsewhere; K21.9 Gastro-esophageal reflux disease without esophagitis; I08.1 Rheumatic disorders of both mitral and tricuspid valves; J30.9 Allergic rhinitis, unspecified; R19.7 Diarrhea, unspecified; K64.8 Other hemorrhoids; G47.33 Obstructive sleep apnea (adult) (pediatric); F32.9 Major depressive disorder, single episode, unspecified; M19.90 Unspecified osteoarthritis, unspecified site; N40.0 Benign prostatic hyperplasia without lower urinary tract symptoms; Z86.73 Personal history of transient ischemic attack (TIA), and cerebral infarction without residual deficits

== ENCOUNTER 2017-03-15 12:53 | Inpatient (IN) | payer MEDICARE, OTHER ==
[~2017-03-15] VITALS: Ht 185.4 cm; Wt 90.7 kg
[~2017-03-15 12:53] MED LIST changes: +BENADRYL25 MG PO; +BENZONATATE200 MG PO; +CARAFATE1 G PO; +FLAGYL 500500 MG/100 IV; +FLORAJEN3 CAPS460 MG PO; +FLUTICASONE PRO16 GM NASAL; +HEADACHE MEDICINE; +LOPERAMIDE HCL2 MG PO; +MUCINEX DM ER1 EAC1 PO; +NS IV; +NYSTATIN ORAL SU5 ML PO; +PEPCID INJ20 MG/2 ML IV; +PULMICORT0.5 MG/21 UPD; +TYLENOL PM1 TAB PO; +UNASYN IV; +VITAMIN B-121000 MCG PO
--- NOTE | 2017-03-15 15:15 | NUR ---
PT ARRIVED TO UNIT VIA WHEELCHAIR ACCOMPANIED BY HOSPITAL STAFF AND FAMILY. PT IS A MIN ASSIST FROM WC TO BED. PT IS WEARING O2 AT 3LPM. PT IS A&OX3. PT PROVIDED WITH URINAL. PT ORIENTED TO ROOM. PT STATES UNDERSTANDING OF BED ALARM. WCTM.
[2017-03-15 15:31] VITALS: BP 111/88; BMI 26.4
--- NOTE | 2017-03-15 17:55 | NUR ---
RESTING QUIETLY IN BED. DENIES NEEDS. CALL LIGHT IN REACH
--- NOTE | 2017-03-15 18:43 | NUR ---
PT ASSISTED TO BR. PT HAD MEDIUM SOFT BM. PT BACK IN BED AND DENIES FURHTER NEEDS. WCTM.
[2017-03-15 19:50] VITALS: BP 140/68
--- NOTE | 2017-03-15 20:30 | NUR ---
IV AMPICILLIN COMPLETE. STARTED FLAGYL 500MG IV IN 100ML TO RUN OVER 1 HOUR PER PUMP VIA LEFT HAND S/L. PATIENT CURRENTLY RESTING QUIETLY IN BED.
--- NOTE | 2017-03-15 21:50 | NUR ---
IV FLAGYL COMPLETED @ 2130 WHEN I ENTERED THE ROOM. FLUSHED LEFT HAND S/L WITH 10ML NS. ASSESSMENT WAS THEN COMPLETED AND HS MEDS GIVEN TO PATIENT. CPAP WAS THEN EMPLACED ON PATIENT FOR THE NIGHT AFTER FILLING HIS RESERVOIR WITH DISTILLED WATER.
--- NOTE | 2017-03-16 | NUR ---
STARTED UNASYN 1.5GM IN 100ML TO RUN PER PUMP OVER 30 MINUTES VIA LEFT HAND S/L. PATIENT RESTING QUIETLY, EYES CLOSED WITH CPAP MASK IN PLACE. R/T REPORTED THAT PATIENT WAS 97% PULSEOX ON ROOM AIR CPAP.
--- NOTE | 2017-03-16 02:15 | NUR ---
CONTINUES RESTING QUIETLY WITH CPAP NASAL MASK IN PLACE. NO DISTRESS EVIDENT.
--- NOTE | 2017-03-16 04:40 | NUR ---
RESTING QUIETLY IN BED, EYES CLOSED. STARTED IV FLAGYL 500MG IN 100ML TO RUN OVER 1 HR PER PUMP VIA LEFT HAND S/L.
--- NOTE | 2017-03-16 05:50 | NUR ---
IV FLAGYL COMPLETE. IV TO TKO PENDING START OF UNASYN INFUSION.
[2017-03-16 07:25] LABS: BASOPHILS 0.4 % (0-2); EOSINOPHILS 5.2 % (0-7); HEMATOCRIT 40.2 % (42.0-54.0); HEMOGLOBIN 13.4 g/dL (13.5-17.5); IMMATURE GRANULOCYTES 0.1 % (0-5); LYMPHOCYTES 15.9 % (15-50); MCH 32.8 pg (26.0-34.0); MCHC 33.3 g/dL (31.0-37.0); MCV 98.3 fL (80.0-100.0); MEAN PLATELET VOLUME 9.5 fL (7.4-10.4); NEUTROPHILS 68.4 % (40-80); PLATELET COUNT 357 10x3/uL (130-400); RBC 4.09 10x6/uL (4.20-6.10); RDW 13.4 % (11.5-14.5); WBC 7.2 10x3/uL (4.8-10.8)
[2017-03-16 07:37] LABS: ANION GAP 7.7 mmol/L (8-16); CALCIUM 8.3 mg/dL (8.5-10.1); CARBON DIOXIDE 29.5 mmol/L (21.0-32.0); CREATININE - SERUM 1.5 mg/dL (0.6-1.3); POTASSIUM - SERUM 4.2 mmol/L (3.5-5.1)
[2017-03-16 08:00] VITALS: BP 146/72
[2017-03-16 12:21] VITALS: Ht 185.4 cm; Wt 90.7 kg
--- NOTE | 2017-03-16 13:55 | NUR ---
RESTING QUIETLY IN BED.CL IN REACH.
--- NOTE | 2017-03-16 18:27 | NUR ---
LYING IN BED RESTING QUIETLY. CALL LIGHT IN REACH. WILL CONTINUE TO MONITOR
[2017-03-16 20:00] VITALS: BP 147/84
--- NOTE | 2017-03-16 20:00 | NUR ---
PT IN BED WITH HOB UP FOR COMFORT. WATCHING TV. O2 @ 3L VIA N/C. RIGHT WRIST SALINE LOC. CPAP AT NIGHT. BED IN LOWEST POSITION AND CALL LIGHT WITHIN REACH.
--- NOTE | 2017-03-16 22:54 | NUR ---
PT. IN BED WITH HOB UP FOR COMFORT AND IS WATCHING TV. PT. REPORTS IV ZOFRAN RELIEVED HIS NAUSEA. NO VOICED NEEDS AT THIS TIME AND HIS CALL LIGHT IS WITHIN REACH.
--- NOTE | 2017-03-16 23:30 | NUR ---
APPLIED PT'S CPAP.
--- NOTE | 2017-03-17 02:20 | NUR ---
PT LYING IN BED WITH HOB UP FOR COMFORT. EYES CLOSED. RESP. EVEN. BED IN POSITION AND CALL LIGHT WITHIN REACH.
--- NOTE | 2017-03-17 04:19 | NUR ---
PT LYING ING BED. EYES CLOSED. CHEST RISING AND FALLING. BED IN LOWEST POSITION AND CALL LIGHT WITHIN REACH.
[2017-03-17 08:00] VITALS: BP 144/72
--- NOTE | 2017-03-17 08:00 | NUR ---
CL IN REACH.BREAKFAST GIVEN;NOT WEARING O2.SATS 96% ON ROOM AIR.O2 DC'D
--- NOTE | 2017-03-17 12:00 | NUR ---
EATING LUNCH.NO FRUTER C/O NAUSEA OR [place] PAIN.
--- NOTE | 2017-03-17 16:00 | NUR ---
VISITING WITH DAUGHTER.
[2017-03-17 20:00] VITALS: BP 118/62
--- NOTE | 2017-03-17 20:14 | NUR ---
AWAKE ALERT AND ORIENTED. PLEASANT AND COOPERATIVE. DENIES ANY PAIN AT THIS TIME.
--- NOTE | 2017-03-18 00:31 | NUR ---
RESTING IN BED WITH EYES CLOSED. NO S/S OF DISTRESS OBSERVED. CALL LIGHT AND OVERBED TABLE IN REACH.
--- NOTE | 2017-03-18 02:11 | NUR ---
RESTING IN BED WITH EYES CLOSED. NO S/S OF DISTRESS OBSERVED. SL TO LEFT HAND PATENT. DRESSING CLEAN, DRY AND INTACT. NO REDNESS OR SWELLING TO SITE. CALL LIGHHT, URINAL AND OVERBED TABLE IN REACH.
[2017-03-18 07:01] LABS: BASOPHILS 0.7 % (0-2); EOSINOPHILS 5.7 % (0-7); HEMATOCRIT 40.2 % (42.0-54.0); HEMOGLOBIN 13.2 g/dL (13.5-17.5); IMMATURE GRANULOCYTES 0.2 % (0-5); LYMPHOCYTES 16.6 % (15-50); MCH 32.4 pg (26.0-34.0); MCHC 32.8 g/dL (31.0-37.0); MCV 98.8 fL (80.0-100.0); MEAN PLATELET VOLUME 9.7 fL (7.4-10.4); MONOCYTES 12.6 % (2-11); NEUTROPHILS 64.2 % (40-80); PLATELET COUNT 372 10x3/uL (130-400); RBC 4.07 10x6/uL (4.20-6.10); RDW 13.6 % (11.5-14.5); WBC 5.8 10x3/uL (4.8-10.8)
[2017-03-18 07:26] LABS: ANION GAP 9.2 mmol/L (8-16); CALCIUM 8.1 mg/dL (8.5-10.1); CARBON DIOXIDE 29.6 mmol/L (21.0-32.0); CREATININE - SERUM 1.3 mg/dL (0.6-1.3); POTASSIUM - SERUM 3.8 mmol/L (3.5-5.1)
[2017-03-18 08:26] VITALS: BP 170/80
--- NOTE | 2017-03-18 09:30 | NUR ---
PT AM MEDS ADMINISTERED. PT STATES HE IS STILL FEELING NAUSEOUS. ZOFRAN GIVEN PREVIOSLY AROUND 0750. WCTM.
--- NOTE | 2017-03-18 11:21 | RHP ---
PATIENT: PHILIP PATEL MEDICAL RECORD: [id number] ACCOUNT: [id number] LOCATION:[id number] : 37 ADMISSION DATE: 03/15/17 REHABILITATION HISTORY AND PHYSICAL EXAMINATION POST ADMISSION PHYSICIAN EXAMINATION Post-admission Physical Examination and History and Physical DATE OF ADMISSION: 03/15/2017 ADMITTING DIAGNOSIS: Aspiration pneumonia involving the right lower lobe, right middle lobe, and left lower level. HISTORY OF PRESENT ILLNESS: The patient admitted to the inpatient rehab with the diagnosis of Aspiration pneumonia. He is an 82-year-old gentleman, who has got a history of PVCs, arrhythmia, hypertension, CVA, benign prostatic hypertrophy, esophageal diverticulum, which he has had a resection back in 1988, hiatal hernia. He had an abnormal CT scan on November 02 showing bibasilar pulmonary fibrosis, atelectasis. He was also admitted secondary to pulmonary hypertension, chronic cough, obstructive sleep apnea, syncope and pneumonia. The patient denies any prior history except for pneumonia at times. He has got no history of asthma or tuberculosis. The patient denies history of exposure to asbestos. 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 The patient has had PFTs done, but was unable to complete them secondary to previous CVA. The patient has been titrated using BiPAP. He has been having progressive weakness and syncope recently including striking his right face and bruising, increased cough. He recently stopped his tessalon perles and Singulair due to possible side effects. He has had a nonproductive cough, but no hemoptysis. Prior to this recent illness, he was actually living in his home with a caregiver for a supervision during the day, yet he was alone at night. He was moderately independent with a rolling walker for ambulation due to balance issues. He walked daily with the caregiver as much as a mile. He is currently moderate to max assist for transfers, ambulation requiring intensive therapy to get back to his prior level of functioning and have any possibility of returning home. COMORBIDITIES: In this patient include pulmonary fibrosis, hypotension, syncope atelectasis, chronic cough, allergic rhinitis, gastroesophageal reflux disease, osteoarthritis, obstructive sleep apnea, chronic kidney disease, and BPH. PAST MEDICAL HISTORY: Significant for CVA, neuropathy, hypertension, PVCs, COPD, obstructive sleep apnea, acid reflux, and depression. PAST SURGICAL HISTORY: Includes a prostate surgery in the past. He has also had esophageal diverticulum removed. He has had an implant in his left eyelid and gallbladder removed. ALLERGIES: DIAZEPAM. CURRENT MEDICATIONS: Include Benicar 10 mg daily, metoprolol 25 mg daily, Floranex 460 mg daily. He is on Breo-Ellipta 1 puff daily. He is on Flonase nasal spray 2 sprays daily. He is on Proscar 5 mg daily, Lexapro 20 mg daily, aspirin 325 mg daily. He is on Flagyl 500 mg q.8 hours, Unasyn 1.5 grams q.6 hours. He is on Carafate 1.5 grams b.i.d. prior to meals. He is on Mirapex 0.25 mg b.i.d., nystatin swish and swallow 5 cc q.a.c. and q.h.s., Imodium 2 mg HISTORY AND PHYSICAL [id number] CHEW,PHILIP L q.6 hours p.r.n. diarrhea, Xopenex as needed for shortness of breath, Atarax 10 mg q.6 hours p.r.n. itching, Cromwell 1 tab q.4 hours p.r.n. pain, Mucinex D 1 tab b.i.d. p.r.n., Pepcid 20 mg b.i.d., Benadryl 50 mg q.h.s., Pulmicort 0.5 mg b.i.d., Tessalon Perles 200 mg t.i.d., and polyethylene glycol 17 grams in 8 ounces of water daily. HABITS: No current alcohol or tobacco use. FAMILY HISTORY: Noncontributory. SOCIAL HISTORY: Once again, he wants to return home. He does have a caregiver. REVIEW OF SYSTEMS: GENERAL: Does complain of weakness and fatigue. HEENT: Does complain of cold, cough, or congestion. CARDIOVASCULAR: Denies any chest pain. LUNGS: Does complain of shortness of breath. PHYSICAL EXAMINATION: VITAL SIGNS: Stable, afebrile. GENERAL: An elderly gentleman, in no acute distress, alert upon exam. HEENT: Normocephalic and atraumatic. Mucosa moist. NECK: Supple. No lymphadenopathy. LUNGS: Coarse breath sounds bilaterally, but decreased breath sounds in the bases. CARDIOVASCULAR: Regular rate and rhythm. ABDOMEN: Benign. EXTREMITIES: No clubbing, cyanosis or edema. NEUROLOGIC: Intact. LABORATORY DATA: His white count is 7.2, H&H 13 and 40, and platelet count 357. Sodium is 139, potassium 4.2, BUN and creatinine of 18 and 1.5 and blood sugar is noted to be 100. ASSESSMENT: This is an 82-year-old gentleman admitted to the rehab with a working diagnosis of aspiration pneumonia involving the right lower lobe and right middle lobe and including the left lower lobe. The patient has potential to make improvement. We will institute the following multidisciplinary therapies including to, but not limited to physical, occupational, respiratory, speech, nutritional services, prosthetics and orthotics. Given his complex condition and risk for more complications, rehabilitation services cannot be provided at a low level of care such as a penitentiary facility. PLAN: 1. Admit to [facility] rehab for intensive inpatient therapy to include the following disciplines: A. Physical therapy to improve gait, all transfer skills and bed mobility to a modified independent level. B. Occupational therapy to improve activities of daily living to a modified independent level. C. Case management to assist with discharge planning and placement options. D. Nutrition to assist with nutritional needs. E. Rehabilitation nursing to assist in monitoring the patient's underlying medical conditions and to assist with any type of bowel or bladder management. 2. The patient's current medication and medical care will be continued. HISTORY AND PHYSICAL [id number] PHILIP PATEL 3. The patient will be placed on standard fall precautions. 4. The patient's estimated length of stay is approximately 7-10 days. 5. Discuss this patient during care team staff meeting this week. TRANSINT:[id number] Voice Confirmation ID: [id number] DOCUMENT ID: [id number] MIHIR notes whether there has been none or any medical/functional change since admission: - MIHIR attests patient continues to be appropriate for IRF: - ALYSSIA JAY MD at 1121 CC: [id number] DICTATION DATE: 03/16/17 1159 MANAGER ASSURANCE: 03/16/17 1236 ADM IN [place] [id number] [place] [address]
--- NOTE | 2017-03-18 11:53 | NUR ---
PT RESING IN BED, TALKING WITH FAMILY. PT DENIES NEEDS. WCTM.
--- NOTE | 2017-03-18 14:05 | NUR ---
PT HAD EPISODE OF INCONTINENT BOWEL. PT CLEANSED AND BED LINENS CHANGED. PT DENIES NEEDS. WCTM.
--- NOTE | 2017-03-18 16:47 | NUR ---
PT RESTING, FAMILY AT BEDSIDE. PT DENIES NEEDS. WCTM.
--- NOTE | 2017-03-18 19:27 | NUR ---
LYING IN BED WITH EYES OPEN AND TV ON. SL TO RIGHT HAND. NO REDNESS OR SWELLING OBSERVED. URINAL AT BEDSIDE. CALL LIGHT AND OVERBED TABLE IN REACH. REQUESTED INSTRUMENT ASSEMBLY SUPERVISOR TO GET HIS CLOTHES OFF AND CHANGE INTO A GOWN. DENIES ANY PAIN.
--- NOTE | 2017-03-18 23:43 | NUR ---
RESTING IN BED WITH EYES CLOSED. NO S/S OF DISTRESS OBSERVED. CALL LIGHT , URINAL AND BEDSIDE TABLE IN REACH.
[2017-03-19 03:07] VITALS: BP 142/69
--- NOTE | 2017-03-19 06:22 | NUR ---
AWAKE AND ALERT THIS AM. PLEASANT AND COOPERATIVE. DENIES ANY PAIN. CALL LIGHT AND OVERBED TABLE IN REACH.
--- NOTE | 2017-03-19 07:20 | NUR ---
PT IS RESTING IN BED WITH EYES OPEN. ALERT AND ORIENTED X 3. HE DENIES ANY ACUTE PAIN O DISCOMFORT AT THIS TIME. NO NEEDS VOICED. RFA SALINE LOCK NOTED. SR'S ARE UP X 2 IN BED. CALL LIGHT AND BEDSIDE TABLE ARE WITHIN EASY REACH.
[2017-03-19 08:12] VITALS: BP 149/78
--- NOTE | 2017-03-19 09:18 | NUR ---
PT IS RESTING IN BED AWAITING THERAPY. NO NEEDS VOICED.
--- NOTE | 2017-03-19 11:29 | NUR ---
PT IS RESTING IN BED WITH EYES CLOSED. IV ABX INFUSING WITHOUT DIFFICULTY.
--- NOTE | 2017-03-19 13:17 | NUR ---
PT IS PARTICIPATING IN THERAPY AT THIS TIME.
--- NOTE | 2017-03-19 13:37 | NUR ---
NUTRITION MONITORING & EVAL CHART REVIEWED, PT IN THERAPY. FAMILY REPORTS PT WITH GOOD PO INTAKE TODAY. TAKE OUT FOR LUNCH. WILL CONTINUE TO PROVIDE DIET, MONITOR PO INTAKE. RD FOLLOWING
--- NOTE | 2017-03-19 15:35 | NUR ---
PT IS RESTING IN BED WITH EYES CLOSED. RESPS ARE EVEN AND UNLABORED. NO ACUTE DISTRESS NOTED.
--- NOTE | 2017-03-19 17:57 | NUR ---
PT IS RESTING IN BED WITH EYES OPEN. SPOUSE AT BEDSIDE. NO COMPLAINT VOICED. FILLING OUT MENU FOR TOMORROW.
--- NOTE | 2017-03-19 18:46 | NUR ---
RESTING QUIETLY IN BED. DENIES NEEDS OR C/O. CALL LIGHT IN REACH
--- NOTE | 2017-03-19 19:30 | NUR ---
REST IN BED AND WATCH TV.
--- NOTE | 2017-03-19 23:10 | NUR ---
PT STATE HE FEEL COLD, ADJUST ROOM TEMP AND WARM BLANKET GIVEN.
[2017-03-20 00:50] VITALS: BP 138/84
--- NOTE | 2017-03-20 02:54 | NUR ---
REST QUIETLY IN BED, EYE CLOSE, CALL LIGHT WITHIN REACH.
--- NOTE | 2017-03-20 04:08 | NUR ---
RESTING QUIETLY, CPAP MACHINE ON, NASAL MASK APPEARS ON CORRECTLY, NO ALARMS FROM SYSTEM, IV INFUSING. NO S/S OF ACUTE DISTRESS.
--- NOTE | 2017-03-20 07:30 | NUR ---
PT IS SITTING IN A CHAIR IN HIS ROOM FEEDING SELF BREAKFAST. NO SWALLOWING PROBLEMS NOTED. NO SOB NOTED. RIGHT FOREARM SALINE LOCK NOTED. NO REDNESS OR EDEMA NOTED AT THE INSERTION SITE. O2 IS ON @ 2LPM PER NC. CALL LIGHT IS IN EASY REACH.
[2017-03-20 08:23] VITALS: BP 169/78
--- NOTE | 2017-03-20 09:31 | NUR ---
PT IS PARTICIPATING IN THERAPY AT THIS TIME.
--- NOTE | 2017-03-20 11:03 | NUR ---
PT JUST FINISHING A SHOWER WITH OT. GOING TO THE GYM TO FINISH THERAPY SESSION.
--- NOTE | 2017-03-20 14:00 | NUR ---
PT IS PARTICIPATING IN THERAPY AT THIS TIME.
--- NOTE | 2017-03-20 15:56 | NUR ---
PT IS SITTING IN HIS WC IN HIS ROOM VISITING WITH A VISITOR. NO COMPLAINT VOICED.
--- NOTE | 2017-03-20 16:00 | NUR ---
CARE TEAM MEETING: DAUGHTER ATTENDED MEETING. TENATIVE DISCHARGE DATE IS 03/26/17. QUESTIONS AND CONCERNS ADDRESSED. DISCHARGE PLANS ARE FOR PATIENT TO RETURN HOME AND DAUGHTER WILL ASSIST WITH DISCHARGE NEEDS. WILL CONTINUE TO FOLLOW WITH PATIENT . HE HAS NO O2 AT HOME, WILL ASSESS O2 SAT AT DISCHARGE .
--- NOTE | 2017-03-20 18:16 | NUR ---
IV ABX FINISHED AT THIS TIME. SALINE LOCK FLUSHED EASILY.
--- NOTE | 2017-03-20 19:15 | NUR ---
RESTING IN BED, EYES CLOSED.
--- NOTE | 2017-03-20 20:20 | NUR ---
IN BED, AWAKE. DENIES NEEDS.
--- NOTE | 2017-03-20 21:45 | NUR ---
C/O NAUSEA. ELEVATED HOB AGAIN TO 45 DEGREES AND ASSISTED PATIENT TO REPOSITION UP IN BED. GAVE HIM ZOFRAN 4MG PO. TOLD HIM I WILL RETURN TO DELIVER HIS HS MEDS AFTER HIS STOMACH HAS SETTLED.
[2017-03-20 22:55] VITALS: BP 153/69
--- NOTE | 2017-03-20 22:55 | NUR ---
ASSESSMENT AND HS MEDS COMPLETE. PATIENT STATES HIS STOMACH UPSET HAS RESOLVED.
--- NOTE | 2017-03-21 00:30 | NUR ---
STARTED IV UNASYN 1.5GM TO RUN OVER 30 MINUTES PER PUMP VIA RIGHT FOREARM S/L. EMPLACED CPAP FOR HS. PATIENT QUITE DROWSY. SAYS HE IS COMFORTABLE.
--- NOTE | 2017-03-21 02:25 | NUR ---
IN BED, EYES CLOSED. CPAP MASK IN PLACE AND OPERATING NORMALLY.
--- NOTE | 2017-03-21 04:10 | NUR ---
CONTINUES IN BED, WITH. CPAP NASAL MASK IN PLACE. APPEARS COMFORTABLE.
--- NOTE | 2017-03-21 05:50 | NUR ---
GAVE PATIENT SCHEDULED PO MEDS. STARTED UNASYN 1.5GM IN 100ML TO RUN PER PUMP OVER 30 MINUTES. WILL D/C RIGHT FA S/L ON COMPLETION. SITED NEW 22GA IV CATH IN LEFT FOREARM ON 1ST ATTEMPT USING STERILE PROCEDURE. ALL IV TUBING WAS CHANGED OUT. CONVERTED PATIENT BACK TO NASAL CANNULA @ 2L FLOW.
--- NOTE | 2017-03-21 07:31 | NUR ---
PT IS RESTING IN BED WITH EYES CLOSED. AWAKENS TO VERBAL STIMULI, BUT HE REFUSED TO GET UP TO EAT BREAKFAST. STATES HE WILL GET UP WHEN HE IS READY. O2 IS ON @ 2LPM PER NC. NO SOB NOTED. SR'S ARE UP X 2 IN BED. CALL LIGHT AND BEDSIDE TABLE ARE WITHIN EASY REACH.
--- NOTE | 2017-03-21 08:02 | NUR ---
UP OOB TO BATHROOM WITH ASSIST OF WALKER.BREAKFAST GIVEN.CL IN REACH.
[2017-03-21 09:42] VITALS: BP 150/75
--- NOTE | 2017-03-21 10:39 | NUR ---
PT IS PARTICIPATING IN THERAPY AT THIS TIME.
--- NOTE | 2017-03-21 13:49 | NUR ---
PT IS FEEDING SELF LUNCH IN HIS ROOM. NO NEEDS VOICED. DAUGHTER AT BEDSIDE.
--- NOTE | 2017-03-21 17:06 | NUR ---
PT FEEDING SELF SUPPER IN HIS ROOM. NO NEEDS VOICED.
--- NOTE | 2017-03-21 19:10 | NUR ---
IN BED. AWAKE. NO C/O AT THIS TIME.
[2017-03-21 21:35] VITALS: BP 146/77
--- NOTE | 2017-03-21 21:35 | NUR ---
ASSESSMENT AND HS MEDS COMPLETE. DEFERRED EMPLACEMENT OF CPAP UNTIL HE IS FINISHED WATCHING TV. SAYS HE WILL CALL. REMINDED HIM HE IS NOT TO ATTEMPT OOB WITHOUT STAFF ASSIST AND THAT HE CONTINUES WITH USE OF BED ALARM. EMPTIED 300ML FROM HIS BEDSIDE URINAL.
--- NOTE | 2017-03-21 22:00 | NUR ---
REMAINS AWAKE, WATCHING TV.
--- NOTE | 2017-03-21 23:50 | NUR ---
REMOVED NASAL CANNULA AND EMPLACED CPAP MASK. STARTED CPAP. STARTED UNASYN 1.5GM IN 100ML TO RUN OVER 30 MINUTES VIA LEFT FOREARM S/L. EMPTIED 400ML FROM BEDSIDE URINAL. PATIENT IS BVERY DROWSY.
--- NOTE | 2017-03-22 01:50 | NUR ---
RESTING QUEITLY IN BED, HOB UP 30 DEGREES. CPAP MASK REMAINS IN PLACE. SET OFF BED ALARM @ 0130 ATTEMPTING OOB THROUGH LEFT SIDE BEDAILS WITH CPAP MASK STILL ON FACE. ASSISTED HIM BACK INTO BED AT THAT TIME AND REMINDED HIM HE HAS A URINAL BESIDE HIM THAT HE HAS BEEN USING. PATIENT URINATED 300ML CLEAR LIGHT YELLOW URINE INTO HIS URINAL WHICH I JUST EMPTIED.
--- NOTE | 2017-03-22 04:35 | NUR ---
RESTING IN BED, EYES CLOSED. CONTINUES WITH CPAP MASK IN PLACE. APPEARS COMFORTABLE.
[2017-03-22 08:30] VITALS: BP 147/73
--- NOTE | 2017-03-22 09:00 | NUR ---
PT AM MEDS ADMINISTERED. PT DENIES NEEDS. WCTM.
--- NOTE | 2017-03-22 11:00 | NUR ---
PT REQ AND REC'D PRN TYLENOL FOR HEADACHE PER ORDERS AT THIS TIME. WCTM.
--- NOTE | 2017-03-22 15:32 | NUR ---
PT RESTING IN BED, DENIES NEEDS. WCTM.
--- NOTE | 2017-03-22 19:00 | NUR ---
PATIENT AWAKE. DAUGHTER ASSISTED HIM UP TO BR AND BACK TO BED.
[2017-03-22 20:40] VITALS: BP 137/76
--- NOTE | 2017-03-22 20:40 | NUR ---
ASSESSMENT AND HS MEDS COMPLETE. DENIES CURRENT NEEDS. WILL CALL WHEN HE WANTS CPAP MASK EMPLACED.
--- NOTE | 2017-03-22 22:00 | NUR ---
IN BED, WATCHING TV. DENIES NEEDS.
--- NOTE | 2017-03-23 00:05 | NUR ---
PT CANOE BUILDER LIGHT, EMPTIED 750 MLS OF CLEAR YELLOW URINE, PT REPORTS THAT WAS 2 VOIDS, PT DENIES FURTHER NEEDS
--- NOTE | 2017-03-23 00:10 | NUR ---
REEMPLACED AND READJUSTED CPAP FACIAL MASK PATIENT HAD TAKEN IT OFF AND CHANGED THE LOWER STRAP ADJUSTMENT. STARTED IV UNASYN 1.5GM IN 50 ML TO RUN OVER 30 MINUTES PER PUMP VIA LEFT FA S/L.
--- NOTE | 2017-03-23 02:05 | NUR ---
RESTING IN BED, WITH CPAP NASAL MASK IN PLACE. WAS CHANGED FROM FULL FACE MASK TO NASAL MASK AT 0040 HE WOULD NOT KEEP THE FACE MASK ON.
--- NOTE | 2017-03-23 04:40 | NUR ---
IN BED, EYES CLOSED. CONTINUES ON CPAP WITH NASAL MASK.
--- NOTE | 2017-03-23 05:35 | NUR ---
RESTING IN BED, EYES CLOSED.
--- NOTE | 2017-03-23 08:15 | NUR ---
PT SITTING UP IN BED EATING BREAKFAST CALL LIGHT IN REACH WILL MONITER
[2017-03-23 09:11] VITALS: BP 161/63
--- NOTE | 2017-03-23 13:42 | NUR ---
PT RESTING IN BED WITH EYES OPEN CALL LIGHT IN REACH WILL MONITER
--- NOTE | 2017-03-23 18:06 | NUR ---
RESTING QUIETLY IN BED. NO S/S DISTRESS. CALL LIGHT IN REACH.
--- NOTE | 2017-03-23 19:35 | NUR ---
assisted sba for bed to w/c transfer. pt voided, supervision with transfer and personal hygiene. pt denied pain. pt requested to spend time in hallway out of room. pt independent in w/c.
[2017-03-23 19:37] VITALS: BP 147/69
--- NOTE | 2017-03-24 00:05 | NUR ---
pt resting quietly, eyes closed, saline lock patent. respirations regular and unlabored.
--- NOTE | 2017-03-24 03:28 | NUR ---
pt resting quietly, respiration regular and unlabored. pt removed cpap mask. hob elevated.
--- NOTE | 2017-03-24 06:56 | NUR ---
RESTING QUIETLY IN BED. NO S/S DISTRESS. CALL LIGHT IN REACH
[2017-03-24 08:08] VITALS: BP 159/80
--- NOTE | 2017-03-24 08:15 | NUR ---
PT RESTING IN BED EATING BREAKFAST CALL LIGHT IN REACH WILL MONITER
--- NOTE | 2017-03-24 18:49 | NUR ---
PT RESTING IN BED WITH EYES OPEN CALL LIGHT IN REACH WILL MONITER
--- NOTE | 2017-03-24 19:00 | NUR ---
IN BED, AWAKE. WATCHING TV.
[2017-03-24 20:55] VITALS: BP 170/82
--- NOTE | 2017-03-24 20:55 | NUR ---
ASSESSMENT AND HS MEDS COMPLETE. CHANGED PINK PAD DUE TO URINAL SPILL IN BED. DENIES FURTHER NEEDS.
--- NOTE | 2017-03-24 22:35 | NUR ---
SET OFF BED ALARM ATTEMPTING OOB THROUGH BEDRAILS WITHOUT CALLING FOR ASSIST. ASSISTED HIM UP TO BR COMMODE. REMINDED HIM TO CALL FOR ASSIST.
--- NOTE | 2017-03-25 00:35 | NUR ---
PATIENT REMAINS AWAKE. CHANGED HIM OVER TO CPAP NASAL MASK WITH 2L O2 FLOW CONNECTED IN. STARTED IV UNASYN 1.5GM TO RUN OVER 30 MINUTES PER PUMP VIA LEFT FOREARM S/L. PATIENT DENIES CURRENT NEEDS. EMPTIED 325ML CLEAR PALE YELLOW URINE FROM BEDSIDE URINAL.
--- NOTE | 2017-03-25 02:45 | NUR ---
FOUND PATIENT WITH CPAP MASK OFF AND STRAPS IN DISARRAY. REARRANGED HEADSTRAPS AND REEMPLACED CPAP NASAL MASK AND STARTED AIRFLOW WITH 2L O2 PIPED IN.
--- NOTE | 2017-03-25 04:55 | NUR ---
PATIENT CALLED FOR ASSIST UP TO COMMODE WHERE HE HAD A SMALL VOLUME FORMED BM AND URINATED AN UNMEASURED AMOUNT. AFTERWARD HE WAS ASSISTED TO SHOWER AND TO DRESS FOR THE DAY. BED LINENS WERE CHANGED AND PATIENT WAS RETURNED TO BED AND CPAP WITH 2L O2 RESUMED.
--- NOTE | 2017-03-25 05:20 | NUR ---
STARTED IV UNASYN 1.5GM IN 50 ML TO RUN OVER 30 MINUTES PER PUMP VIA LEFT FOREARM S/L. GAVE PATIENT 0600-SCHEDULED PO MEDS ALSO. RESUMED CPAP WITH 2L O2 AFTER PO MEDS. HAVE FOUND PATIENT HAVING PULLED OFF HIS CPAP NASAL MASK X4 TONIGHT. EACH TIME HIS EXPLANATION HAS BEEN, "IT JUST CAME OFF", RATHER THAN TAKING RESPONSIBILITY FOR HAVING REMOVED IT IN HIS SLEEP. NOT SURE IF HE IS JUST NOT ADMITTING RESPONSIBILITY, OR IF HE TRULY DOES NOT PROCESS THAT THE MASK CANNOT COME OFF BY ITSELF AFTER BEING PROPERLY ADJUSTED AND EMPLACED BY A STAFF MEMBER.
[2017-03-25 05:32] LABS: BASOPHILS 1.4 % (0-2); EOSINOPHILS 7.9 % (0-7); HEMATOCRIT 47.6 % (42.0-54.0); HEMOGLOBIN 15.8 g/dL (13.5-17.5); IMMATURE GRANULOCYTES 0.3 % (0-5); LYMPHOCYTES 22.7 % (15-50); MCH 33.1 pg (26.0-34.0); MCHC 33.2 g/dL (31.0-37.0); MCV 99.8 fL (80.0-100.0); MEAN PLATELET VOLUME 10.1 fL (7.4-10.4); MONOCYTES 8.9 % (2-11); NEUTROPHILS 58.8 % (40-80); PLATELET COUNT 387 10x3/uL (130-400); RBC 4.77 10x6/uL (4.20-6.10); RDW 13.7 % (11.5-14.5); WBC 7.8 10x3/uL (4.8-10.8)
[2017-03-25 05:42] LABS: ANION GAP 14.7 mmol/L (8-16); CALCIUM 8.6 mg/dL (8.5-10.1); CARBON DIOXIDE 27.7 mmol/L (21.0-32.0); CREATININE - SERUM 1.5 mg/dL (0.6-1.3); POTASSIUM - SERUM 3.4 mmol/L (3.5-5.1)
--- NOTE | 2017-03-25 05:50 | NUR ---
INFUSION COMPLETE. FOUND PATIENT HAD PULLED OFF HIS CPAP MASKA AGAIN. CHANGED HIM OVER TO O2 PER N/C @ 2L FLOW.
--- NOTE | 2017-03-25 06:30 | NUR ---
SERUM POTASSIUM PER [facility] IS 3.4. INITIATED ELECTROLYTE PROTOCOL AND GAVE PATIENT 40 mEq KCL LIQUID IN 4 OZS ORANGE JUICE. PATIENT DRANK IT ALL. ORDERED [facility] FOR 1030 THIS AM AND [facility] TOMORROW, PER PROTOCOL.
--- NOTE | 2017-03-25 07:15 | NUR ---
RESTING QUIETLY IN BED. NO S/S DISTRESS. CALL LIGHT IN REACH
--- NOTE | 2017-03-25 07:31 | NUR ---
PT RESTING IN BED WITH EYES OPEN CALL LIGHT IN REACH WILL MONITER
[2017-03-25] MEDS ORDERED: PEPCID20 MG PO (09:04)
[2017-03-25] MEDS ORDERED: LEVAQUIN500 MG PO (09:05)
--- NOTE | 2017-03-25 15:55 | NUR ---
PATIENT DISCHARGING HOME WITH FAMILY. AT THIS TIME PATIENT DECLINES HOME HEALTH. DME AT HOME: NEBULIZER AND A ROLLING WALKER. DR. HIGGINS 04/01/17 @ 10:30. PATIENT CHOICE FORM FOR HOME HEALTH(PATIENT DECLINED) AND [facility] FORM SIGNED, EXPLAINED AND FILED IN CHART. PATIENT WILL DISCHARGE IN AM 03/26/17
--- NOTE | 2017-03-25 16:26 | NUR ---
PT RESTING IN BED WITH EYES OPEN CALL LIGHT IN REACH WILL MONITER
--- NOTE | 2017-03-25 19:00 | NUR ---
IN BED, AWAKE. GAVE PATIENT HIS MENU TO COMPLETE FOR TOMORROW LUNCH IN CASE HE DOES NOT DISCHARGE EARLIER. DENIES CURRENT NEEDS.
[2017-03-25 21:10] VITALS: BP 155/75
--- NOTE | 2017-03-25 21:10 | NUR ---
ASSESSMENT AND HS MEDS COMPLETE. DENIES NEEDS.
--- NOTE | 2017-03-25 22:30 | NUR ---
D/C'D 22GA S/L FROM LEFT FOREARM. HAS NO FURTHER IV MED ORDERS AND DISCHARGES TOMORROW.
--- NOTE | 2017-03-26 | NUR ---
EMPLACED CPAP NASAL MASK AND STARTED CPAP ON ROOM AIR AFTER REFILLING WATER RESERVOIR.
--- NOTE | 2017-03-26 02:00 | NUR ---
IN BED, EYES CLOSED. CONTINUES ON CPAP. NO APPARENT DISCOMFORT.
--- NOTE | 2017-03-26 03:45 | NUR ---
FOUND PATIENT IN BED WITH CPAP MASK OFF AND HEAD HARNESS REMOVED FROM MASK. REASSEMBLED HEAD HARNESS/MASK COMBO AND REEMPLACED IT ON PATIENT'S FACE.
--- NOTE | 2017-03-26 05:55 | NUR ---
GAVE PATIENT SCHEDULED PO MEDS. DENIES NEEDS.
[2017-03-26 06:35] LABS: ANION GAP 11.8 mmol/L (8-16); CALCIUM 8.8 mg/dL (8.5-10.1); CARBON DIOXIDE 28.5 mmol/L (21.0-32.0); CREATININE - SERUM 1.3 mg/dL (0.6-1.3); POTASSIUM - SERUM 4.3 mmol/L (3.5-5.1)
--- NOTE | 2017-03-26 12:07 | NUR ---
PT DISCHARGED HOME VIA WHEELCHAIR WITH DAUGHTER DISCHARGE SUMMARY AND MEDS REVIEWD WITH PT MEDS CALLED TO [facility] [place]
== END 2017-03-26 12:11 | disposition home or self-care (01) | DRG 178 ==
LOC: D.REHAB 12:53
PROVIDERS: ADMIT Emergency Medicine
DX: J69.0 Pneumonitis due to inhalation of food and vomit (principal); J98.11 Atelectasis; I95.9 Hypotension, unspecified; R55 Syncope and collapse; R05 Cough; K21.9 Gastro-esophageal reflux disease without esophagitis; M19.90 Unspecified osteoarthritis, unspecified site; G47.33 Obstructive sleep apnea (adult) (pediatric); I12.9 Hypertensive chronic kidney disease with stage 1 through stage 4 chronic kidney disease, or unspecified chronic kidney disease; N18.9 Chronic kidney disease, unspecified; N40.0 Benign prostatic hyperplasia without lower urinary tract symptoms

== ENCOUNTER → 2017-07-02 10:03 | Outpatient (CLI) | payer MEDICARE, OTHER ==
[2017-03-16 12:21] VITALS: BMI 26.3
[~2017-07-02 10:03] MED LIST changes: +LEVAQUIN500 MG PO; +PEPCID20 MG PO
== END | disposition home or self-care (01) ==
LOC: D.RAD 10:00
DX: J84.10 Pulmonary fibrosis, unspecified (principal)

== ENCOUNTER 2019-01-25 02:58 | Inpatient (IN) | payer MEDICARE ==
--- NOTE | 2019-01-25 03:18 | NUR ---
PT TAKEN TO CT AT THIS TIME.
--- NOTE | 2019-01-25 03:21 | NUR ---
PT AT BEDSIDE STATES THAT SHE WENT TO SLEEP ABOUT 2200/ 2300 AND WOKE UP AT 0200AM AND NOTED PT WAS NOT IN BED BUT HIS C PAP WAS ON STATES THAT PT HAS TROUBLE SLEEPING AND WILL GO PLAY FREECELL ON THE COMPUTER AT NIGHT PT WAS FOUND STARING AT COMPUTER SCREEN. PT STATES THAT PT WAS TRYING TO WALK TO BEDROOM BUT NEEDED ASSISTANCE AND WAS "WEAKER" THAN NORMAL. PT STATES THAT PT SPEECH AT THIS TIME IS BETTER THAN IT WAS AT HOME.
[2019-01-25 04:15] LABS: BASOPHILS 0.5 % (0-2); EOSINOPHILS 11.1 % (0-7); HEMATOCRIT 42.2 % (42.0-54.0); HEMOGLOBIN 14.9 g/dL (13.5-17.5); IMMATURE GRANULOCYTES 0.3 % (0-5); LYMPHOCYTES 22.1 % (15-50); MCH 34.9 pg (26.0-34.0); MCHC 35.3 g/dL (31.0-37.0); MCV 98.8 fL (80.0-100.0); MEAN PLATELET VOLUME 9.6 fL (7.4-10.4); MONOCYTES 12.9 % (2-11); NEUTROPHILS 53.1 % (40-80); RBC 4.27 10x6/uL (4.20-6.10); RDW 12.8 % (11.5-14.5)
[2019-01-25 04:16] LABS: PLATELET COUNT 182 10x3/uL (130-400)
[2019-01-25 04:24] LABS: ALBUMIN 3.1 g/dL (3.4-5.0); ALKALINE PHOSPHATASE 58 U/L (46-116); ALT (SGPT) 17 U/L (10-68); BILIRUBIN - TOTAL 0.46 mg/dL (0.2-1.3); CALC OSMOLALITY 282 mosm/kg (275-300); CALCIUM 8.8 mg/dL (8.5-10.1); CARBON DIOXIDE 26.7 mmol/L (21.0-32.0); CHLORIDE - SERUM 106 mmol/L (98-107); CREATININE - SERUM 1.5 mg/dL (0.6-1.3); GLUCOSE 100 mg/dL (74-106); POTASSIUM - SERUM 4.4 mmol/L (3.5-5.1); PROTEIN - SERUM 6.5 g/dL (6.4-8.2); SODIUM 140 mmol/L (136-145); UREA NITROGEN 23 mg/dL (7-18); eGFR NON AFRICAN AMERICAN 48 mL/min (90-120)
[2019-01-25 04:27] LABS: CREATINE KINASE 45 UL (21-232); TROPONIN-I < 0.017 ng/mL (0.000-0.060)
[2019-01-25 04:39] LABS: APTT 28.4 SECONDS (22.8-39.4); INR 0.95 (0.85-1.17); PROTIME 12.1 SECONDS (11.6-15.0)
[2019-01-25 06:05] VITALS: BP 159/76; BMI 29.0
--- NOTE | 2019-01-25 09:23 | NUR ---
PT ALERT X 4. BREATH SOUNDS CLEAR BILAT. TELEMETRY IN PLACE. IV TO LEFT AC, SALINE LOCKED. DRESSING TO RIGHT EAR CDI. FAMILY AT BEDSIDE. BED LOW, CALL LIGHT IN REACH. NO OTHER NEEDS AT THIS TIME.
[2019-01-25 09:25] VITALS: BP 161/73
[2019-01-25 10:00] VITALS: BMI 29.0
[2019-01-25] MEDS ORDERED: PROTONIX40 MG PO (10:09)
[2019-01-25] MEDS ORDERED: BENICAR20 MG PO (10:09)
[2019-01-25 13:00] VITALS: BP 178/78
[2019-01-25 18:20] VITALS: BP 152/74
[2019-01-25 20:00] VITALS: BP 143/74
--- NOTE | 2019-01-25 20:00 | NUR ---
ALERT SITTING UP IN BED WATCHING TV, MOVES ALL EXTREMITIES EQUALLY, GENERALIZED WEAKNESS NOTED SPEECH SLOW TO RESPOND BUT APPROPRIATE, DENIES PAIN CALL LIGHT IN REACH, SIDE RAILS UP X 2, GENARO MAT IN USE, INSTRUCTED TO CALL BEFORE GETTING UP, URINAL IN REACH
--- NOTE | 2019-01-25 21:10 | NUR ---
UP TO BATHROOM WITHOUT ASSIST, GENARO ALARM GOING OFF, INCONTIENT OF URINE ON FLOOR, ASSISTED BACK TO BED, GENARO RESET, CALL LIGHT AND URINAL PLACED IN REACH, REMINDED TO CALL FOR ASSISTANCE BEFORE GETTING UP
[2019-01-26] VITALS: BP 138/61
[2019-01-26 04:00] VITALS: BP 135/64
[2019-01-26 07:08] LABS: BASOPHILS 0.5 % (0-2); EOSINOPHILS 8.6 % (0-7); HEMATOCRIT 43.9 % (42.0-54.0); HEMOGLOBIN 15.7 g/dL (13.5-17.5); LYMPHOCYTES 18.1 % (15-50); MCHC 35.8 g/dL (31.0-37.0); MCV 97.8 fL (80.0-100.0); MEAN PLATELET VOLUME 10.1 fL (7.4-10.4); MONOCYTES 9.3 % (2-11); NEUTROPHILS 63.5 % (40-80); PLATELET COUNT 183 10x3/uL (130-400); RBC 4.49 10x6/uL (4.20-6.10); RDW 12.7 % (11.5-14.5); WBC 8.4 10x3/uL (4.8-10.8)
[2019-01-26 07:29] LABS: ANION GAP 12.2 mmol/L (8-16); CALCIUM 8.7 mg/dL (8.5-10.1); CARBON DIOXIDE 25.9 mmol/L (21.0-32.0); CREATININE - SERUM 1.4 mg/dL (0.6-1.3); POTASSIUM - SERUM 4.1 mmol/L (3.5-5.1)
--- NOTE | 2019-01-26 08:01 | NUR ---
REC'D IN BED AWAKE TO SELF ONLY WITH NOTED CONFUSION. RESP EVEN AND UNLABORED WITH NO DISTRESS NOTED. NO C/O NOTED OR VOICED. ASSESSMENT COMPLETED. C/L IN REACH AT BEDSIDE.
[2019-01-26 08:45] VITALS: BP 147/68
[2019-01-26 13:02] VITALS: BP 138/84
--- NOTE | 2019-01-26 15:00 | NUR ---
I have reviewed this patient and I concur with the Shift Assessment completed by the Licensed Practical Nurse today this shift.
[2019-01-26 16:56] VITALS: BP 149/54
[2019-01-26 20:00] VITALS: BP 174/73
[2019-01-27] VITALS: BP 162/80
--- NOTE | 2019-01-27 00:30 | NUR ---
RESTING IN BED ALARM IN PLACE AND WORKING. NEACTOR LIQUIDS IN REACH NO NEEDS STATED OR NOTED RESPRATIONS EVEN AND UNLABORED CALL LIGHT IN REACH.
[2019-01-27 04:00] VITALS: BP 180/84
[2019-01-27 08:16] VITALS: BP 180/77
--- NOTE | 2019-01-27 12:08 | NUR ---
OT NOTE: PT UP TO CHAIR WITH MIN ASSIST; AMB TO BATHROOM WITH MIN ASSIST. PT MORE LABILE TODAY AND WAS UNABLE TO ANSWER ANY QUESTIONS AUTOMATICALLY TODAY. COORDINATION CONTINUES TO BE IMPAIRED AND PT UNABLE TO FOLLOW 1 STEP COMMANDS. ALSO TODAY, PTS YES/NO RESPONSES WERE INACCURATE. MET WITH WHO INFORMED THIS THERAPIST THAT DR WANTED PT TO GO TO IP REHAB. EXPLAINED TO HER THAT THIS WAS A GOOD IDEA, PT WAS HAVING INCREASED DIFFICULTY WITH ALL OF THE ABOVE, COMPARED TO YESTERDAY. PT APPEARS EITHER FRUSTRATED OR IN PAIN, BUT IS UNABLE TO EXPRESS NEEDS. COORDINATION FOR GROOMING TASKS IS SIGNIFICANTLY IMPAIRED, AND WORD FINDING IS WORSE THAN YESTERDAY. DEFINITELY RECOMMEND IP REHAB TODAY, PTS WILL BE UNABLE TO CARE FOR PT AT THIS TIME. BRANDIE GIBBONS, OTR/L
[2019-01-27 12:43] VITALS: BP 137/65
--- NOTE | 2019-01-27 12:43 | NUR ---
Rehab Note- Acute Inpatient Rehab prescreen order received. The patient has [facility] insurance and will require a PreAuth. Began PreAuth this Am, have now faxed clinicals per request from [facility] for review for possible approval for acute inpatient rehab. Will continue to follow at this time. Thank you for this referral! France Armas RN Clinical Liaison, [facility]
--- NOTE | 2019-01-27 15:37 | EC ---
PATIENT:PHILIP PATEL DATE OF SERVICE: 01/25/19 SEX: M MEDICAL RECORD: [id number] DATE OF : 37 LOCATION:[facility] AGE OF PATIENT: 83 ADMISSION DATE: 01/27/19 REFERRING PHYSICIAN: INTERPRETING PHYSICIAN: ARMANDO LAKE MD ECHOCARDIOGRAM REPORT ECHO CHARGES 4 ECHO COMPLETE Date: 01/25/19 CLINICAL DIAGNOSIS: TIA ECHOCARDIOGRAPHIC MEASUREMENTS (adult normal given) AC root (d.<3.7cm) 3.3 cm LV Septum d (<1.2 cm> 1.4 cm Valve Excursion 2.6 cm LV Septum (systole) 1.8 cm Left Atria (s.<4.0cm> 3.7 cm LVPW d(<1.2cm) 1.3 cm RV (d.<2.3cm) 3.0 cm LVPW (sytole) 1.9 cm LV diastole(<5.6CM) 4.9 cm MV E-F(>70mm/sec) cm LV systole 2.8 cm LVOT Diameter 2.4 cm MV exc.(>10mm) cm Est.ejection fraction (50-75%) % DOPPLER: LVIT cm/sec A 65.0 cm/sec E 37.0 cm/sec LA cm/sec RVSP 45.0 mmHg LVOT 61.0 cm/sec AOP1/2T m/s Asc. Ao 134 cm/sec RVOT 60.0 cm/sec RA cm/sec PA 80.0 cm/sec AV Gradient Peak 7.2 mmHg AV Mean 3.9 mmHg AV Area 1.8 cm MV Gradient Peak 2.7 mmHg MV Mean 0.84 mmHg MV Area cm COMMENTS: Mrp Controller: Carlotta FERNANDEZOE Chief Embalmer: 3 Dr. Beal TAPE# PACS Pericardial Effusion N DATE OF SERVICE: 01/26/2019 Adequate 2D, color flow, spectral Doppler and M-Mode. Mild LVH. LV internal dimension is normal. Wall motion is normal. EF is greater than or equal to 55%. Aortic valve is tricuspid. No evidence of stenosis by Doppler interrogation. Left atrium is normal at 3.7 cm. Mitral valve shows no prolapse. Trace MR. Right-sided chambers appear grossly normal. [id number] TR. TRANSINT:[id number] Voice Confirmation ID: [id number] DOCUMENT ID: [id number] ECHOCARDIOGRAM REPORT [id number] PHILIP PATEL,ARMANDO Radford MD at 1537 CC: [id number] DICTATION DATE: 01/26/19 1048 OUTBOUND SALES PROFESSIONAL: 01/26/19 1343 ADM IN [facility] [address] [place] [address]
[2019-01-27 16:29] VITALS: BP 167/79
--- NOTE | 2019-01-27 18:01 | NUR ---
I have reviewed this patient and I concur with the Shift Assessment completed by the Licensed Practical Nurse today this shift.
[2019-01-27 20:00] VITALS: BP 153/69
[2019-01-28] VITALS: BP 153/70
[2019-01-28 04:00] VITALS: BP 117/72
[2019-01-28 09:44] VITALS: BP 160/70
--- NOTE | 2019-01-28 09:55 | NUR ---
Shiv Gamble with [facility]. This patient has been approved for the ARU for 7 days. Auth # [id number]. PEDRO German will be notified. Bridget Quiroz RN Clinical Liaison, Rehab
--- NOTE | 2019-01-28 10:11 | NUR ---
OT NOTE: BED MOB WITH MIN ASSIST; TRANSFER TO CHAIR WITH CGA; FEEDING WITH MIN ASSIST; REQUIRED MOD ASSIST FOR UE DRESSING DUE TO COORDINATION DEFECITS WITH R UE; MOD ASSIST TO CLEVE SOCKS. ABILITY TO FOLLOW SIMPLE VERBAL COMMANDS WAS POOR, HOWEVER, WITH DEMONSTRATIONAL CUES, IT WAS BETTER. DECREASED COMPREHENSION AND APHASIA CONTINUES. YES/NO RESPONSES WERE INACCURATE. BRANDIE GIBBONS, OTR/L
--- NOTE | 2019-01-28 11:16 | MORECARE ---
CASE MANAGEMENT DISCHARGE SUMMARY PATIENT: PHILIP PATEL UNIT: [id number] ADM DATE: 01/27/19 AGE: 83 : 36 SEX: M ROOM/BED: D.2232 AUTHOR: HIRO DUGAN PHYSICIAN: REFERRING PHYSICIAN: TG DUARTE MD DATE OF SERVICE: 01/28/19 Discharge Plan Patient Name: PHILIP PATEL Facility: [facility]:[place] : 1935 Planned Disposition: Inpatient Rehab Anticipated Discharge Date: 01/28/19 Discharge Date: Expected LOS: 1 Initial Reviewer: [email or web address] Initial Review Date: 01/28/2019 Generated: 01/28/19 12:16 pm Comments DCP- Discharge Planning Updated by [email or web address]: Rona German on 01/28/19 10:[address] Patient Name: PHILIP PATEL Admission Status: ER Accout number: [id number] Admission Date: 01-27-2019 : 1935 Admission Diagnosis: Attending: TG DUARTE Current LOS: 1 Anticipated DC Date: 01-28-2019 Planned Disposition: Inpatient Rehab Primary Insurance: [facility] MEDICARE SOLUTIONS Discharge Planning Comments: I have received notification from Bridget that inpatient rehab has received insurance authorization. I called Dr. Smith's office and informed his nurse (Nathaly) and she states she will let Dr. Smith know. I met with patient and his and informed them and they are in agreement to discharge plan to inpatient rehab. He has been living independently with his , he does have a cane and a walker that he typically does not use, according to his . Discharging today to inpatient rehab, no other needs identified at this time. CM will continue to follow and assist with discharge planning/needs. Optical Design Engineer: Rona German DCPIA - Discharge Planning Initial Assessment Updated by [id number]: Rona German on 01/28/19 11:12 am * Is the patient Alert and Oriented? Yes * How many steps to enter\exit or inside your home? 0/0 * PCP Dr. Smith * Pharmacy [facility] 7N * Preadmission Environment Home with Family * ADLs Independent * Equipment Cane Walker * List name and contact numbers for known caregivers / representatives who currently or will assist patient after discharge: Twyla Caldera [facility] - [phone] * Verbal permission to speak to the caregivers and representatives has been obtained from the patient. Yes * Community resources currently utilized None * Additional services required to return to the preadmission environment? Yes * Can the patient safely return to the preadmission environment? Yes * Has this patient been hospitalized within the prior 30 days at any hospital? No Coverage Notice Reviewer: [id number] Werner Roy Notice Issued Date-Time: 01/25/2019 15:10 Notice Type: Medicare Outpatient Observation Notice Notice Delivered To: Patient Relationship to Patient: Self Irrigation System Operator Name: Delivery Method: HAND - Hand Delivered Maribel Days: Prior Verbal Notification: Recipient Understood Notice: Yes Recipient Signature: Yes Med Rec Note Co-signed by Attending: Coverage Notice Comment: Patient Name: PHILIP PATEL Page [phone] at 1116 All edits/amendments must be made on the electronic document DICTATION DATE: 01/28/19 1116 WEAPONS ELECTRICAL ENGINEERING OFFICER: JORDIN 01/28/19 1116 RPT#: [id number] DC DATE: STATUS: ADM IN [facility] [address] [place] [address] END OF REPORT
[2019-01-28 12:00] VITALS: BP 122/65
[2019-01-28] MEDS ORDERED: PLAVIX75 MG PO (12:51)
--- NOTE | 2019-01-28 13:21 | NUR ---
PT LYING IN BED. CONFUSION NOTED. AT BEDSIDE. DENIES NEEDS AT THIS TIME.
--- NOTE | 2019-01-28 17:32 | NUR ---
OT NOTE: PT COMPLETED BED MOB WITH MIN/MOD A. PT COMPLETED HYGIENE TASK WITH MOD A. PT REQUIRED EXTENSIVE CUES. THANK YOU, SHERIF DOMINGO
--- NOTE | 2019-01-31 15:56 | MORECARE ---
CASE MANAGEMENT DISCHARGE SUMMARY PATIENT: PHILIP PATEL UNIT: [id number] ADM DATE: 01/27/19 AGE: 83 : 36 SEX: M ROOM/BED: D.2232 AUTHOR: HIRO DUGAN PHYSICIAN: REFERRING PHYSICIAN: TG DUARTE MD DATE OF SERVICE: 01/31/19 Discharge Plan Patient Name: PHILIP PATEL Facility: [facility]:[place] : 1935 Planned Disposition: Inpatient Rehab Anticipated Discharge Date: 01/28/19 Discharge Date: 01/28/2019 Expected LOS: 1 Initial Reviewer: [email or web address] Initial Review Date: 01/28/2019 Generated: 01/31/19 4:56 pm Comments DCP- Discharge Planning Updated by [email or web address]: Rona German on 01/28/19 10:[address] Patient Name: PHILIP PATEL Admission Status: ER Accout number: [id number] Admission Date: 01-27-2019 : 1935 Admission Diagnosis: Attending: TG DUARTE Current LOS: 1 Anticipated DC Date: 01-28-2019 Planned Disposition: Inpatient Rehab Primary Insurance: [facility] MEDICARE SOLUTIONS Discharge Planning Comments: I have received notification from Bridget that inpatient rehab has received insurance authorization. I called Dr. Smith's office and informed his nurse (Nathaly) and she states she will let Dr. Smith know. I met with patient and his and informed them and they are in agreement to discharge plan to inpatient rehab. He has been living independently with his , he does have a cane and a walker that he typically does not use, according to his . Discharging today to inpatient rehab, no other needs identified at this time. CM will continue to follow and assist with discharge planning/needs. Production Team Advisor: Rona German DCPIA - Discharge Planning Initial Assessment Updated by [id number]: Rona German on 01/28/19 11:12 am * Is the patient Alert and Oriented? Yes * How many steps to enter\exit or inside your home? 0/0 * PCP Dr. Smith * Pharmacy [facility] 7N * Preadmission Environment Home with Family * ADLs Independent * Equipment Cane Walker * List name and contact numbers for known caregivers / representatives who currently or will assist patient after discharge: Twyla medina - [phone] * Verbal permission to speak to the caregivers and representatives has been obtained from the patient. Yes * Community resources currently utilized None * Additional services required to return to the preadmission environment? Yes * Can the patient safely return to the preadmission environment? Yes * Has this patient been hospitalized within the prior 30 days at any hospital? No Coverage Notice Reviewer: [id number] Werner Roy Notice Issued Date-Time: 01/25/2019 15:10 Notice Type: Medicare Outpatient Observation Notice Notice Delivered To: Patient Relationship to Patient: Self Performance Management Consultant Name: Delivery Method: HAND - Hand Delivered Maribel Days: Prior Verbal Notification: Recipient Understood Notice: Yes Recipient Signature: Yes Med Rec Note Co-signed by Attending: Coverage Notice Comment: Last DP export: 01/28/19 10:16 a Patient Name: PHILIP PATEL Page [phone] at 1556 All edits/amendments must be made on the electronic document DICTATION DATE: 01/31/191554 LEVER OPERATOR: JORDIN 01/31/191554 RPT#: [id number] DC DATE:01/28/19 STATUS: DIS IN [facility] [address] [place] [address] END OF REPORT
== END 2019-01-28 14:47 | DRG 69 ==
LOC: D.ER 02:58 → D.MS 04:52 → OBSVTIME 04:52 → D.MS 01-27 09:20
PROVIDERS: Family Medicine; ADMIT Family Medicine; ATTEND Family Medicine
DX: G45.9 Transient cerebral ischemic attack, unspecified (principal); Z86.73 Personal history of transient ischemic attack (TIA), and cerebral infarction without residual deficits; I10 Essential (primary) hypertension; J44.9 Chronic obstructive pulmonary disease, unspecified; F32.9 Major depressive disorder, single episode, unspecified; E78.5 Hyperlipidemia, unspecified; J84.10 Pulmonary fibrosis, unspecified; R13.10 Dysphagia, unspecified; R40.2234 Coma scale, best verbal response, inappropriate words, 24 hours or more after hospital admission; R40.2354 Coma scale, best motor response, localizes pain, 24 hours or more after hospital admission; R40.2144 Coma scale, eyes open, spontaneous, 24 hours or more after hospital admission

== ENCOUNTER 2019-01-28 15:06 | Inpatient (IN) | payer MEDICARE ==
--- NOTE | 2019-01-28 14:30 | NUR ---
RECIEVED FROM ACUTE FLOOR/WC TO ROOM 1113A.ORIENTED TO SURROUNDINGS.CL IN REACH. AT BEDSIDE.
[~2019-01-28 15:06] MED LIST changes: +BENICAR20 MG PO; +PLAVIX75 MG PO; +PROTONIX40 MG PO
[2019-01-28 16:31] VITALS: BP 156/71; BMI 28.0
[2019-01-28 19:00] VITALS: BP 159/76
--- NOTE | 2019-01-28 19:33 | NUR ---
PT RESTLESS AT THIS TIME. ATTEMPTED TO ASK PT WHAT HE NEEDED. ASSISTED HELPING HIM UP IN BED AND ADJUSTING BED SHEETS AND PILLOWS. PT DENIED MORE NEEDS AT THIS TIME. DENIES PAIN WELL. RESP EVEN AND UNLABORED. LEFT SIDE OF FACE DROPPY. WILL CONTINUE TO MONITOR.
--- NOTE | 2019-01-28 22:35 | NUR ---
PT CONTINUING TO GET UP WITHOUT CALLING. PT SEEMS RESTLESS. PT SITS UP ON SIDE OF BED AND FIXES HIS BLANKETS AFTER THIS NURSE JUST FIXED THEM AND STANDS UP AND MESSES WITH INCONT PAD. ASSISTED TO BATHROOM TO SEE IF THAT HELPS AND HE WILL CALM DOWN AND PT URINATED. SITUATED PT BACK IN BED WILL CONTINUE TO MONITOR. PT IS CONFUSED AND NONVERBAL.
--- NOTE | 2019-01-29 01:11 | NUR ---
PT RESTING QUEITLY. CALL LIGHT IN REACH. NO DISTRESS NOTED. WCTM CALL LIGHT IN REACH. BED ALARM ON
--- NOTE | 2019-01-29 01:31 | NUR ---
RESTING IN BED WITH EYES CLOSED AND RESPIRATIONS UNLABORED. NO DISTRESS NOTED. CALL LIGHT IN REACH.
--- NOTE | 2019-01-29 03:30 | NUR ---
PT RESTING QUIETLY. CALL LIGHT IN REACH. NO DISTRESS NOTED. CL IN REACH. BED ALARM ON. WCTM
--- NOTE | 2019-01-29 05:51 | NUR ---
PT RESTING QUIETLY. CALL LIGHT IN REACH. NO DISTRESS NOTED. CL IN REACH. BED ALARM ON. WCTM
--- NOTE | 2019-01-29 07:35 | NUR ---
RECEIVED REPORT. LYING IN BED HOB 30 DEGREES EYES CLOSED RESTING. EASILY AROUSED WITH VERBAL STIMULI. DENIES ANY NEEDS OR PAIN. NO SIGNS OF DISTRESS NOTED. CALL LIGHT WITHIN REACH, FALL PRECAUTIONS IN PLACE WILL CONTINUE TO MONITOR
[2019-01-29 08:00] VITALS: BP 150/57
[2019-01-29 12:59] VITALS: BMI 27.9
--- NOTE | 2019-01-29 13:19 | NUR ---
LYING IN BED EYES CLOSED RESTING. NO SIGNS OF DISTRESS NOTED
--- NOTE | 2019-01-29 15:54 | NUR ---
SITTING UP IN W/C ROAMING HALLS. NO SIGNS OF DISTRESS NOTED. DENIES ANY NEEDS OR PAIN
--- NOTE | 2019-01-30 00:25 | NUR ---
PT CONTINUALLY GETTING UP AND SETTING OFF BED ALARM WITHOUT CALLING FOR HELP FROM STAFF, PT IS PLEASANTLY CONFUSED, CAN BE REDIRECTED, RESPIRATIONS EVEN AND UNLABORED, NO NEEDS NOTED, FLUIDS AND CALL LIGHTS WITHIN REACH
[2019-01-30 07:44] LABS: BASOPHILS 0.6 % (0-2); EOSINOPHILS 6.3 % (0-7); HEMATOCRIT 44.2 % (42.0-54.0); HEMOGLOBIN 15.9 g/dL (13.5-17.5); IMMATURE GRANULOCYTES 0.2 % (0-5); LYMPHOCYTES 19.3 % (15-50); MCH 35.2 pg (26.0-34.0); MCV 97.8 fL (80.0-100.0); MEAN PLATELET VOLUME 9.9 fL (7.4-10.4); NEUTROPHILS 62.6 % (40-80); PLATELET COUNT 197 10x3/uL (130-400); RBC 4.52 10x6/uL (4.20-6.10); RDW 12.6 % (11.5-14.5); WBC 8.7 10x3/uL (4.8-10.8)
[2019-01-30 08:02] LABS: CALCIUM 8.7 mg/dL (8.5-10.1); CARBON DIOXIDE 28.7 mmol/L (21.0-32.0); CREATININE - SERUM 1.5 mg/dL (0.6-1.3); POTASSIUM - SERUM 3.7 mmol/L (3.5-5.1)
[2019-01-30 08:05] VITALS: BP 142/72
--- NOTE | 2019-01-30 08:11 | NUR ---
SITTING UP IN BED FOR BREAKFAST. SPEECH IS VERY LIMITED. SAYS 1-2 WORD ANSWERS MOST OF TIME. OFTEN HE JUST MUMBLES. NEEDS CONSTANT SUPERVISION AND REDIRECTION FOR SAFETY. MAKES GOOD EYE CONTACT. LIKES TO PULL CLOTHES AND GOWN OFF.
--- NOTE | 2019-01-30 09:43 | RHP ---
PATIENT: PHILIP PATEL MEDICAL RECORD: [id number] ACCOUNT: [id number] [facility] : [birth year] ADMISSION DATE: 01/28/19 REHABILITATION HISTORY AND PHYSICAL EXAMINATION POST ADMISSION PHYSICIAN EXAMINATION DATE OF ADMISSION: 01/28/2019 ADMITTING DIAGNOSIS: Chronic bilateral cerebellar lacunar infarcts HISTORY OF PRESENT ILLNESS: The patient is an 83-year-old gentleman admitted to inpatient rehab with chronic bilateral cerebral lacunar infarcts. He presented to the ED on 01/25/2019 via ambulance. Apparently, he was doing fine when he went to bed. She states that she found the patient sitting at the computer at 2 o'clock, staring, he was minimally responsive and exhibited generalized weakness. She called 911. He was transferred to the ED. The patient did not know how long he was sitting there. She noticed he had difficulty with speech. He did not remember how long the confusion had been present. On exam, he had slurred speech, difficulty finding words, confusion, focal weakness, generalized weakness. He has some chronic left facial weakness and drooping from previous CVA. EKG showed normal sinus rhythm, his labs were within normal limits. CT of his head showed no acute pathology, symptoms dramatically improved from what his found him to the time of the admit. An MRI of his head showed chronic bilateral cerebellar lacunar infarcts, chronic small vessel ischemic changes were noted. A bedside swallow evaluation showed oropharyngeal dysphagia with clinical signs of aspiration. He had severe language deficits, moderate global aphasia, receptive and expressive. A diet of mechanical soft with nectar thick liquids were started, safety with swallowing and dietary upgrades. Previously, he was independent with his ADLs without assistive device. Currently, he is mod-to-max assist to ADLs and mobility. He wants to be able to return home hopefully at his prior level of functioning or better if possible. COMORBIDITIES: Include hyperlipidemia, pulmonary fibrosis, left facial droop, history of CVA, BPH, arthritis, COPD, sleep apnea. He is blind in one eye. PAST MEDICAL HISTORY: Significant for CVA, he has got history of hypertension, he has got history of COPD, got a history of myeloma, arthritis, chronic back pain, melanoma. He has got history of BPH, depression. PAST SURGICAL HISTORY: Includes prostate surgery, esophageal surgery. He has had a diverticulum removed. He has got some surgery on his left eyelid. He has had his gallbladder removed. ALLERGIES: DIAZEPAM, GADOLINIUM CONTRAST. CURRENT MEDICATIONS: Include Benicar 20 mg daily, metoprolol 25 mg daily, Flonase nasal spray daily, Proscar 5 mg daily, he is on B12 1000 mcg daily, he is on Plavix 75 mg daily, aspirin 325 daily, Carafate 1 gram b.i.d. and before every meal, he is on Breo 1 inhalation daily, he is on Protonix 40 mg daily and Brownfield 5/325 one tab every 4 hours p.r.n. HABITS: No current alcohol or tobacco use. FAMILY HISTORY: Noncontributory. HISTORY AND PHYSICAL [id number] PHILIP PATEL SOCIAL HISTORY: The patient hopes to return back home and get back to his prior level of functioning. REVIEW OF SYSTEMS: GENERAL: He does complain of some weakness and fatigue. HEENT: Denies cold, cough, or congestion. CARDIOVASCULAR: He denies chest pain. PHYSICAL EXAMINATION: VITAL SIGNS: Stable, afebrile. GENERAL: A well-developed gentleman in no acute distress, alert upon exam. HEENT: Normocephalic and atraumatic. Mucosa moist. NECK: Supple, with no lymphadenopathy. LUNGS: Clear at this time. HEART: Regular rate and rhythm. ABDOMEN: Benign. EXTREMITIES: No clubbing, cyanosis or edema. NEUROLOGIC: He does have noted diffuse weakness and this is really nonlocalized, does have some facial drooping. ASSESSMENT: This is an 83-year-old gentleman admitted to the rehab with a working diagnosis of cerebrovascular accident. The patient has potential to make improvement. We instituted the following multidisciplinary therapies including, but not limited to physical, occupational, respiratory, speech, nutritional services, prosthetics and orthotics. Given his complex medical condition and risk for more complications, rehabilitation services cannot be provided at a low level of care such a skilled nurse facility. PLAN: 1. Admit to [facility] for intensive inpatient therapy to include the following disciplines: A. Physical therapy to improve gait, all transfer skills and bed mobility to a modified independent level. B. Occupational therapy to a modified independent level. C. Case management to assist with discharge planning and placement options. D. Nutrition to assist with nutritional needs. E. Rehabilitation nursing to assist in monitoring the patient's underlying medical conditions and to assist with any type of bowel or bladder management. 2. The patient's current medications and medical care will be continued. 3. The patient will be placed on standard fall precautions. 4. The patient's estimated length of stay is approximately 7-10 days. 5. We will discuss this patient during care team staff meeting this week. TRANSINT:[id number] Voice Confirmation ID: [id number] DOCUMENT ID: [id number] MIHIR notes whether there has been none or any medical/functional change since admission: - No change since prescreen. MIHIR attests patient continues to be appropriate for IRF: - Continues to be appropriate. HISTORY AND PHYSICAL [id number] PHILIP PATEL,CHRISTINA CADE MD at 0943 CC: [id number] DICTATION DATE: 01/29/19718 PEDIATRIC GENETIC COUNSELOR: 01/29/19917 ADM IN [place] [id number] [place] [id number]
--- NOTE | 2019-01-30 09:56 | NUR ---
LAYING IN BED. IS CONFUSED AND KEEPS TRYING TO GET OUT OF BED. REQUIRES CONSTAND SUPERVISION AND REDIRECTION FOR SAFETY. BED ALARM IN USE. CALL LIGHT IN REACH, BED IN LOWEST POSITION AND BED RAILS UP X2.
--- NOTE | 2019-01-30 12:28 | NUR ---
IMPULSIVE TO GET UP OUT OF BED. BED ALARM IN PLACE. WANTED IN WC TO ROLL AROUND UNIT. HE TRIED TO LEAVE UNIT AND HAD TO BE REDIRECTED BACK TO SAFER AREA.
--- NOTE | 2019-01-30 13:36 | NUR ---
WALKING IN HALLS WITH THERAPY
--- NOTE | 2019-01-30 14:50 | NUR ---
PATIENT ADMITTED TO REHAB FROM ACUTE FLOOR. DR. HIGGINS IS HIS PCP. DME AT HOME IS A CANE AND A WALKER. DISCHARGE PLANS ARE FOR HIM TO RETURN HOME AND GO TO [facility] OUT PATIENT THERAPY. WILL CONTINUE TO FOLLOW WITH PATIENT.
--- NOTE | 2019-01-30 19:29 | NUR ---
PT TOOK SELF TO BATHROOM AND RETURNED INDEPENDENTLY WITHOUT NURSE SEEING HIM. BED ALARM WENT OFF WHEN HE GOT OUT OF BED, BUT HE WAS ALREADY ON THE TOILET WHEN I ARRIVED IN ROOM. VOIDED WITHOUT DIFFICULTY. SR'S ARE UP X 3 IN BED. CALL LIGHT AND BEDSIDE TABLE ARE WITHIN EASY REACH.
[2019-01-30 20:00] VITALS: BP 172/71
--- NOTE | 2019-01-30 22:01 | NUR ---
PT IS RESTING IN BED WATCHING TV. NO ACUTE DISTRESS NOTED.
--- NOTE | 2019-01-31 00:47 | NUR ---
RESTING IN BED WITH RESPIRATIONS UNLABORED. SLEEPS IN SHORT INTERVALS. GETS UP PERIODICALLY AND FORGETS TO CALL FOR ASSISTANCE. BED ALARM IN PLACE. CALL LIGHT IN REACH.
--- NOTE | 2019-01-31 01:28 | NUR ---
PT RESTING IN BED WITH EYES CLOSED. CPAP ON.
--- NOTE | 2019-01-31 05:11 | NUR ---
RESTING IN BED WITH EYES CLOSED.
[2019-01-31 08:00] VITALS: BP 164/75
--- NOTE | 2019-01-31 08:00 | NUR ---
PATIENT SITTING AT THE SIDE OF THE BED TO EAT BREAKFAST. CONFUSED. BED ALARM ON. PATIENT IS MOSTLY NON VERBAL. SEEMS TO UNDERSTAND SIMPLE QUESTIONS AND ANSWEAR WITH A SIMPLE YES OR NO. CALL LIGHT WITHIN REACH. WILL CONTINUE WITH PLAN OF CARE
--- NOTE | 2019-01-31 10:04 | NUR ---
PATIENT WORKING WITH OCCUPATIONAL THERAPIST. PATIENT HELPED WITH SHOWER. CLEAN LINENS ON BED.
--- NOTE | 2019-01-31 14:01 | NUR ---
PATIENT DOWN IN REHAB ROOM. WORKING WITH PHYSICAL THERAPIST. NO S/S OF ANY PAIN/DISC AT THIS TIME.
--- NOTE | 2019-01-31 15:12 | NUR ---
AT BEDSIDE.MIKA THERAPY.RESTING IN BED.CL IN REACH.
--- NOTE | 2019-01-31 17:45 | NUR ---
REMAINS IN ROOM. PATIENT SITTING UP IN CHAIR TO EAT SUPPER.
[2019-01-31 19:12] VITALS: BP 160/66
--- NOTE | 2019-01-31 19:12 | NUR ---
GREETED PATIENT AND INTRODUCED MYSELF HIS NURSE. PATIENT IS LAYING IN BED QUIETLY IN SUPINE POSITION. BED ALARM ON AND WORKING PROPERLY. SR UP X 2. BED IN LOWEST POSITION. VITAL SIGNS OBTAINED. DENIES ANY FURTHER NEEDS. CALL LIGHT IN REACH.
--- NOTE | 2019-01-31 22:23 | NUR ---
PATIENT UP OUT OF BED AND ATTEMPTING TO GO DOWN THE [place]. PATIENT REDIRECTED TO BED AND REPOSITIONED FOR COMFORT. CALL LIGHT IN REACH. ALARM ON AND WORKING PROPERLY.
--- NOTE | 2019-02-01 05:45 | NUR ---
PATIENT RESTING QUIETLY WITH PERSONAL CPAP MACHINE IN USE. SR UP X 2. BED IN LOWEST POSITION. ALARM ON AND WORKING PROPERLY. CALL LIGHT IN REACH.
[2019-02-01 08:32] VITALS: BP 159/71
--- NOTE | 2019-02-01 08:49 | NUR ---
PATIENT ASLEEP IN BED. C-PAP ON. BED ALARM ON. WILL CONTINUE WITH PLAN OF CARE
--- NOTE | 2019-02-01 12:36 | NUR ---
PATIENTS AND VISITORS IN ROOM. PATIENT SITTING UP AT BEDSIDE TO EAT BREAKFAST
--- NOTE | 2019-02-01 14:00 | NUR ---
IN BED CUDDLED.CL IN REACH.
--- NOTE | 2019-02-01 15:52 | NUR ---
PATIENTS WALKING WITH PATIENT IN HALLWAY, WITH WHEELED WALKER
[2019-02-01 18:59] VITALS: BP 155/74
--- NOTE | 2019-02-01 18:59 | NUR ---
GREETED PATIENT AND INTRODUCED MYSELF HIS NURSE FOR THE EVENING. PATIENT IS LAYING IN BED IN SUPINE POSITION. HOB AT 25 DEGREES. RESPIRATIONS EVEN. NO S/S OF DISTRESS. SR UP X 2. BED IN LOWEST POSITION. CALL LIGHT IN REACH. VITAL SIGNS OBTAINED.
--- NOTE | 2019-02-02 01:34 | NUR ---
PATIENT RESTING QUIETLY WITH EYES CLOSED. PATIENT IS WEARING PERSONAL CPAP DEVICE. RESPIRATIONS EVEN. NO S/S OF DISTRESS. SR UP X 2. BED IN LOWEST POSITION. ALARM ON AND WORKING PROPERLY. CALL LIGHT IN REACH.
[2019-02-02 06:55] LABS: BASOPHILS 0.4 % (0-2); EOSINOPHILS 8.4 % (0-7); HEMATOCRIT 42.2 % (42.0-54.0); HEMOGLOBIN 14.9 g/dL (13.5-17.5); IMMATURE GRANULOCYTES 0.1 % (0-5); LYMPHOCYTES 20.4 % (15-50); MCH 34.7 pg (26.0-34.0); MCHC 35.3 g/dL (31.0-37.0); MCV 98.1 fL (80.0-100.0); MEAN PLATELET VOLUME 9.6 fL (7.4-10.4); MONOCYTES 8.8 % (2-11); NEUTROPHILS 61.9 % (40-80); PLATELET COUNT 192 10x3/uL (130-400); RDW 13.1 % (11.5-14.5); WBC 7.1 10x3/uL (4.8-10.8)
[2019-02-02 07:30] LABS: ANION GAP 12.7 mmol/L (8-16); CALCIUM 8.5 mg/dL (8.5-10.1); CARBON DIOXIDE 25.2 mmol/L (21.0-32.0); CREATININE - SERUM 1.3 mg/dL (0.6-1.3); POTASSIUM - SERUM 3.9 mmol/L (3.5-5.1)
[2019-02-02 08:33] VITALS: BP 138/72
--- NOTE | 2019-02-02 09:31 | NUR ---
Nutrition follow up Regular mechanical soft diet with 100% intake of meals Observed breakfast and pt ate well Attempted to visit with pt however pt not able to respond appropriately Will add supplement as pt may need more nutrition than provided by kitchen as he is 73in tall and that he is eating 100% RD following
--- NOTE | 2019-02-02 15:38 | NUR ---
THE PATIENT WAS SITTING IN HIS LILIAN AND VISITING WITH HIS WHEN STAFF ENTERED HIS ROOM. THE PATIENT AND WERE EDUCATED ON THE USE OF A CALL LIGHT AND THE NEED TO CALL STAFF BEFORE HE GETS OUT OF BED. THE PATIENT AND HIS DEONSTRATE UNDERSTANDING VIA TEACHBACK METHOD. THE PATIENT APPEARS COMFORTABLE WITH NO QUESTIONS OR CONCERNS AT THIS TIME.
[2019-02-02 19:59] VITALS: BP 154/64
--- NOTE | 2019-02-02 20:00 | NUR ---
PATIENT RECEIVED SITTING UP IN BED WATCHING TV. PATIENT ASSESSMENT & VITAL SIGNS DONE. PATIENT BED LOW. CALL LIGHT & BEDSIDE TABLE WITHIN REACH. WILL CONTINUE TO MONIIOR.
--- NOTE | 2019-02-03 02:18 | NUR ---
PATIENT EYES CLOSED. RESPIRATIONS 18 & EVEN. BED LOW. ALARM ON. CALL LIGHT WITHIN REACH. WILL CONTINUE TO MONITOR.
[2019-02-03 08:00] VITALS: BP 155/64
--- NOTE | 2019-02-03 08:15 | NUR ---
PT RESTING IN BED WITH EYES OPEN CALL LIGHT IN REACH NO PROBLEMS WILL MONITER
--- NOTE | 2019-02-03 09:07 | NUR ---
CLINICAL UPDATES FAXED TO ANTWAN ARGUELLES AT [phone], AUTH. # [id number], ID # [id number] WITH CONFORMATION RECIEVED
--- NOTE | 2019-02-03 13:27 | NUR ---
RECIEVED FAXE FROM [facility] PERL DEVELOPER THAT THE NEXT UPDATE IS DUE 02/10/19. FAX COMMUNICATION IS IN CHART
--- NOTE | 2019-02-03 17:58 | NUR ---
PT RESTING IN BED WITH EYES OPEN CALL LIGHT IN REACH WILL MONITER
[2019-02-03 20:00] VITALS: BP 159/72
--- NOTE | 2019-02-03 20:00 | NUR ---
PATIENT RECEIVED SITTING UP IN BED WATCHING TV. PATIENT ASSESSMENT & VITAL SIGNS DONE. PATIENT HAD NO C/O PAIN OR DISTRESS. PATIENT BED LOW. CALL LIGHT WITHIN REACH. ALARM ON. WILL CONTINUE TO MONITOR.
--- NOTE | 2019-02-04 03:54 | NUR ---
PATIENT EYES CLOSED. RESPIRATIONS 18 & EVEN. ALARM ON. CALL LIGHT WITHIN REACH. WILL CONTINUE TO MONITOR.
[2019-02-04 08:19] LABS: ANION GAP 13.2 mmol/L (8-16); CALCIUM 8.7 mg/dL (8.5-10.1); CARBON DIOXIDE 26.2 mmol/L (21.0-32.0); CREATININE - SERUM 1.3 mg/dL (0.6-1.3); POTASSIUM - SERUM 3.4 mmol/L (3.5-5.1)
[2019-02-04 08:33] VITALS: BP 144/74
--- NOTE | 2019-02-04 14:16 | NUR ---
RESTING WO DISTRESS. FAMILY AT BS.
--- NOTE | 2019-02-04 16:21 | NUR ---
NO CHANGE IN ASSESSMENT. BED ALARM ON. CL IN REACH.
--- NOTE | 2019-02-04 16:34 | NUR ---
CARE TEAM MEETING: FAMILY AND SPOUSE ATENDED MEETING. QUESTIONS AND CONCERNS WERE ADDRESSED. DISCHARGE PLANS ARE FOR PATIENT TO RETURN HOME WITH SPOUSE AND HE WILL RESUME WITH OUT PATIENT THERPAY AT [facility]. WILL CONTINUE TO FOLLOW WITH PATIENT. TENATIVE DISCHARGE DATE IS 02/10/19.
[2019-02-04 19:00] VITALS: BP 153/75
--- NOTE | 2019-02-04 19:49 | NUR ---
RESTING IN BED WITH NO DISTRESS NOTED. RESPIRATIONS UNLABORED. CALL LIGHT IN REACH.
--- NOTE | 2019-02-05 02:28 | NUR ---
RESTING IN BED WITH RESPIRATIONS UNLABORED. NO DISTRESS NOTED. CALL LIGHT IN REACH.
--- NOTE | 2019-02-05 05:28 | NUR ---
QUIET HOURS. RESTING IN BED WITH RESPIRATIONS UNLABORED. SLEPT IN LONG INTERVALS THIS SHIFT. OCCASSIONALY WOKE UP TO GO TO BATHROOM. NO ACUTE DISTRESS NOTED. CALL LIGHT IN REACH.
--- NOTE | 2019-02-05 07:20 | NUR ---
RECEIVED REPORT. LYING IN BED HOB 30 DEGREES EYES CLOSED RESTING. RR EVEN AND UNLABORED. CALL LIGHT WITHIN REACH, FALL PRECAUTIONS IN PLACE. WILL CONTINUE TO MONITOR
--- NOTE | 2019-02-05 11:50 | NUR ---
IN ROOM WITH OT. DENIES ANY NEEDS OR PAIN. NO SIGNS OF DISTRESS NOTED. CALL LIGHT WITHIN REACH, FALL PRECAUTIONS IN PLACE. WILL CONTINUE TO MONITOR
--- NOTE | 2019-02-05 13:35 | NUR ---
LYING IN BED EYES CLOSED RESTING. RR EVEN AND UNLABORED. CALL LIGHT WITHIN REACH, FALL PRECAUTIONS IN PLACE. WILL CONTINUE TO MONITOR
[2019-02-05 19:00] VITALS: BP 146/106
--- NOTE | 2019-02-05 20:15 | NUR ---
AWAKE AND RESTING IN BED WITH RESPIRATIONS UNLABORED. NOTED LEFT SIDED WEAKNESS AND LEFT FACIAL DROOPING. SPEECH SOMEWHAT GARBLED AT TIMES. NO ACUTE DISTRESS NOTED. CALL LIGHT IN REACH.
--- NOTE | 2019-02-06 04:52 | NUR ---
RESTING IN BED. RESPIRATIONS UNLABORED. REMAINS CONFUSED AND GETS OUT OF BED WITHOUT CALLING NURSE DESPITE CONTINUAL REMINDERS. SAFETY MEASURES IN PLACE. CALL LIGHT IN REACH.
[2019-02-06 08:20] VITALS: BP 148/82
[2019-02-06 09:02] LABS: BASOPHILS 0.4 % (0-2); EOSINOPHILS 8.9 % (0-7); HEMATOCRIT 44.7 % (42.0-54.0); HEMOGLOBIN 15.6 g/dL (13.5-17.5); IMMATURE GRANULOCYTES 0.3 % (0-5); LYMPHOCYTES 15.7 % (15-50); MCH 34.4 pg (26.0-34.0); MCHC 34.9 g/dL (31.0-37.0); MCV 98.5 fL (80.0-100.0); MEAN PLATELET VOLUME 9.9 fL (7.4-10.4); MONOCYTES 11.4 % (2-11); NEUTROPHILS 63.3 % (40-80); PLATELET COUNT 226 10x3/uL (130-400); RBC 4.54 10x6/uL (4.20-6.10); WBC 7.8 10x3/uL (4.8-10.8)
[2019-02-06 09:17] LABS: ANION GAP 11.3 mmol/L (8-16); CALCIUM 9.1 mg/dL (8.5-10.1); CARBON DIOXIDE 29.6 mmol/L (21.0-32.0); CREATININE - SERUM 1.4 mg/dL (0.6-1.3); POTASSIUM - SERUM 3.9 mmol/L (3.5-5.1)
--- NOTE | 2019-02-06 09:45 | NUR ---
AM MEDS ADMINISTERED. PT DENIES NEEDS. ASSESSMENT COMPLETE. WCTM.
--- NOTE | 2019-02-06 18:21 | NUR ---
PT RESTING IN BED, AT BEDSIDE, DENIES NEEDS. WCTM.
--- NOTE | 2019-02-06 19:30 | NUR ---
PT LYING IN BED WATCHING TV. CALL LIGHT IN REACH. IN ROOM. DENIES NEEDS OR PAIN AT THIS TIME. BED ALARM ON. RESP EVEN AND UNLABORED. ALERT BUT CONFUSED. WILL CONTINUE TO MONITOR.
[2019-02-06 19:59] VITALS: BP 151/68
--- NOTE | 2019-02-06 23:47 | NUR ---
PT RESTING QUIETLY. EYES CLOSED. CPAP APPLIED. NO DISTRESS NOTED. RESP EVEN AND UNLABORED. CALL LIGHT IN REACH. BED ALARM ON. WILL CONTINUE TO MONITOR.
--- NOTE | 2019-02-07 00:10 | NUR ---
RESTNIG IN BED WITH RESPIRATIONS UNLABORED. NO DISTRESS NOTED. CALL LIGHT IN REACH. BED ALARM ON.
--- NOTE | 2019-02-07 03:01 | NUR ---
RESTING QUIETLY. EYES CLOSED. NO DISTRESS NOTED. CL IN REACH. WCTM
--- NOTE | 2019-02-07 05:36 | NUR ---
PT RESTING QUIETLY. CALL LIGHT IN REACH. NO DISTRESS NOTED. WCTM
--- NOTE | 2019-02-07 07:43 | NUR ---
ALERT WITH CONFUSION. NO C/O PAIN. RESP EVEN AND UNLABORED. CL IN REACH.
[2019-02-07 08:51] VITALS: BP 163/68
--- NOTE | 2019-02-07 17:33 | NUR ---
NO CHANGE IN ASSESSMENT. RESP EVEN AND UNLABORED. CL IN REACH.
--- NOTE | 2019-02-07 19:00 | NUR ---
PATIENT GOT UP WITHOUT CALLING FOR HELP. ASSISTED TO BATHROOM. SOME CONFUSION NOTED. ASSSITED BACK TO BED. NO OTHER COMPLAINTS AT THIS TIME. WILL CONTINUE TO MONITOR.
[2019-02-07 21:44] VITALS: BP 156/68
--- NOTE | 2019-02-08 08:15 | NUR ---
PT RESTING IN BED WITH EYES OPEN CALL LIGHT IN REACH WILL MONITER
--- NOTE | 2019-02-08 16:31 | NUR ---
PT RESTING IN BED WITH EYES OPEN CALL LIGHT IN REACH NO PROBLEMS WILL MONITER
--- NOTE | 2019-02-08 18:20 | NUR ---
PT RESTING IN BED WITH EYES OPEN CALL LIGHT IN REACH NO PROBLEMS WILL MONITER
--- NOTE | 2019-02-08 21:57 | NUR ---
PATIENT HAS BEEN GETTING UP WITHOUT USING CALL LIGHT. FORGETFUL AND CONFUSED AT TIMES. NO COMPLAINTS OF PAIN OR DISCOMFORT. COUGHING THIS PM. PRN COUGH MEDICATION GIVEN. PATIENT IS RESTING IN BED THIS TIME WITH EYES CLOSED. WILL CONTINUE TO MONITOR. CALL LIGHT WITHIN REACH.
[2019-02-08 22:13] VITALS: BP 141/60
[2019-02-09 06:13] LABS: BASOPHILS 0.4 % (0-2); EOSINOPHILS 7.5 % (0-7); HEMATOCRIT 45.6 % (42.0-54.0); HEMOGLOBIN 16.1 g/dL (13.5-17.5); IMMATURE GRANULOCYTES 0.2 % (0-5); LYMPHOCYTES 16.6 % (15-50); MCH 34.9 pg (26.0-34.0); MCHC 35.3 g/dL (31.0-37.0); MCV 98.9 fL (80.0-100.0); MEAN PLATELET VOLUME 9.8 fL (7.4-10.4); MONOCYTES 12.1 % (2-11); NEUTROPHILS 63.2 % (40-80); PLATELET COUNT 222 10x3/uL (130-400); RBC 4.61 10x6/uL (4.20-6.10); WBC 8.1 10x3/uL (4.8-10.8)
[2019-02-09 06:29] LABS: ANION GAP 12.4 mmol/L (8-16); CALCIUM 9.1 mg/dL (8.5-10.1); CARBON DIOXIDE 26.8 mmol/L (21.0-32.0); CREATININE - SERUM 1.4 mg/dL (0.6-1.3); POTASSIUM - SERUM 4.2 mmol/L (3.5-5.1)
[2019-02-09 08:00] VITALS: BP 128/75
--- NOTE | 2019-02-09 08:34 | NUR ---
PATIENT STILL ASLEEP. HAS STATED THAT AT HOME PATIENT SLEEPS UNTIL TEN OR ELEVEN O'CLOCK IN THE MORNING. VITALS TAKEN . WNL. BED ALARM ON. WILL CONTINUE WITH PLAN OF CARE
--- NOTE | 2019-02-09 10:30 | NUR ---
Nutrition follow up Regular mechanical soft diet with nectar thick liquids Pt is eating 89% of meals on average Ensure ordered and pt is drinking some Ensure RD following
--- NOTE | 2019-02-09 10:50 | NUR ---
PATIENT IN REHAB ROOM. WORKING WITH PHYSICAL THERAPIST
--- NOTE | 2019-02-09 13:47 | NUR ---
PATIENT RESTING IN BED AFTER PHYSICAL THERAPY AND LUNCH BEFORE GOING TO OCCUPATIONAL THERAPY
--- NOTE | 2019-02-09 15:33 | NUR ---
NURSE ASST IN HELPING PATIENT WITH A SHOWER.
--- NOTE | 2019-02-09 17:40 | NUR ---
AT BEDSIDE. PATIENT EATTING SUPPER. REMAINS ON NECTAR THICK LIQUIDS.
[2019-02-09 19:00] VITALS: BP 138/80
--- NOTE | 2019-02-09 19:35 | NUR ---
AWAKE AND ALERT. RESPIRATIONS UNLABORED. CPAP AT HS. NOTED LEFT SIDED WEAKNESS WITH LEFT FACIAL DROOPING. SPEECH GARBLED. NO ACUTE DISTRESS NOTED. CALL LIGHT IN REACH.
--- NOTE | 2019-02-10 05:14 | NUR ---
RESTING IN BED. RESPIRATIONS UNLABORED. HAS BEEN UP TO BATHROOM SEVERAL TIMES THIS SHIFT. MEDICATED FOR COUGH PRN. NO CURRENT COUGHING AT THIS TIME. CALL LIGHT IN REACH.
--- NOTE | 2019-02-10 09:10 | NUR ---
PT AM MEDS ADMINISTERED. PT DENIES NEEDS. WCTM.
--- NOTE | 2019-02-10 11:17 | NUR ---
PT DISCHARGE INSTRUCTIONS REVIEWED. PT GIVEN HARD PRESCRIPTION FOR OUTPATIENT THERAPY. PT AND SPOUSE STATE UNDERSTANDING. PT MEDS CALLED IN TO [facility] IN [place]. PT DISCHRGED HOME WITH SPOUSE. ESCORTED OUT BY HOSPITAL STAFF VIA WHEELCHAIR.
--- NOTE | 2019-02-10 11:17 | NUR ---
PATIENT DISCHARGING HOME TODAY WITH SPOUSE. WRITTEN SCRIPT FOR OUTPATIENT THERAPY GIVEN TO SPOUSE. NO NEW DME NEEDED AT THIS TIME. DR. HIGGINS 02/16/19 @ 9:10. PATIENT CHOICE FORM AND [facility] FORMS SIGNED, COPY GIVEN TO SPOUSE AND FILED IN CHART. DISCHARGE INSTRUCTIONS FAXED TO PCP AND INSURANCE ( [employer] , , AUTH. # [id number] ) AND REVIEWED WITH SPOUSE AND PATIENT
== END 2019-02-10 11:19 | disposition home or self-care (01) | DRG 57 ==
LOC: D.REHAB 15:06
PROVIDERS: ADMIT Emergency Medicine; ATTEND Emergency Medicine
DX: I69.30 Unspecified sequelae of cerebral infarction (principal); R47.01 Aphasia; I47.1 Supraventricular tachycardia; E78.5 Hyperlipidemia, unspecified; J84.10 Pulmonary fibrosis, unspecified; R29.810 Facial weakness; N40.0 Benign prostatic hyperplasia without lower urinary tract symptoms; J44.9 Chronic obstructive pulmonary disease, unspecified; G47.33 Obstructive sleep apnea (adult) (pediatric); M19.90 Unspecified osteoarthritis, unspecified site; H54.40 Blindness, one eye, unspecified eye; R47.81 Slurred speech

== ENCOUNTER → 2019-09-11 10:04 | Outpatient (CLI) | payer MEDICARE | END | disposition home or self-care (01) | LOC: D.MRI 09-09 13:00 | PROVIDERS: ATTEND Family Medicine | DX: G46.4 Cerebellar stroke syndrome (principal) ==